=== PATIENT | male | born 1955 | race African-American/Black ===

== ENCOUNTER 2018-08-30 16:22 | Emergency (ER) | payer OTHER ==
[2018-08-30] MEDS ORDERED: HYDROCODONE/APAP 5/325 MG TAB ONE (17:04)
[2018-08-30] MEDS ORDERED: DIAZEPAM 2 MG TABLET ONE (17:05)
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
[2018-08-30 18:16] VITALS: TEMP 98.6
[2018-08-30 18:18] VITALS: BP 132/86; O2SAT 98
== END 2018-08-30 18:02 | disposition home or self-care (01) ==
LOC: ER 16:22
DX: S20.212A Contusion of left front wall of thorax, initial encounter (principal); V85.5XXA Driver of special construction vehicle injured in nontraffic accident, initial encounter; E11.9 Type 2 diabetes mellitus without complications
CPT/HCPCS: 71046; 99284

== ENCOUNTER 2023-03-30 09:13 | Inpatient (IN) | payer OTHER ==
--- OUTSIDE RECORDS SUMMARY | 2023-03-30 09:16 | XMS REPORT | Continuity of Care Document ---
:1955 Author Organization [facility] t Address [address] [place] [address] [place] [id number] Care Team Providers Name Role Phone NOAH NICOLÁS Javier Primary Care Physician Unavailable JAMI KAHN Attending Clinician Unavailable 2, Adc Lab Attending Clinician Unavailable Jami Kahn MD Attending Clinician Doctor Unassigned, [place] Attending Clinician Unavailable Lab, Ang - Db Attending Clinician Unavailable RADHA BOYCE Attending Clinician Unavailable Radha Hardy Attending Clinician Fartun Madden MD Attending Clinician FARTUN MADDEN Attending Clinician Unavailable Payers Payer Name Policy Type Policy Number Effective Date Expiration Date S [facility] [place] [id number] 2021 CLASSIC NO PREMIUM 00:00:00 HMO Problems Condition Condition Condition Status Onset Resolution Last Treating Co mments Source Name Details Category Date Date Treatment Clinician Date No known No known Disease Unive rs active active ity of problems problems [facility] Allergies, Adverse Reactions, Alerts Allergy Allergy Status Severity Reaction(s) Onset Inactive Treating Comm ents Source Name Type Date Date Clinician NO KNOWN Drug Active Univers ALLERGIE Class ity of S [facility] Social History Social Habit Start Date Stop Date Quantity Comments Source Exposure to 2022-11-14 2022-11-24 Not sure University SARS-CoV-2 00:00:00 08:27:00 [facility] (event) [place] Tobacco use and 2022-10-02 2022-10-02 Smokeless tobacco Un iversity of exposure 00:00:00 00:00:00 non-user [place] [facility] At [birth year] [facility] Smoking Status Start Date Stop Date Source Never smoked tobacco [facility] Medications Ordered Filled Start Stop Current Ordering Indication Dosage Frequency Signature Comments Components Source Medication Medication Date Date Medication? Clinician (SIG) Name Name tadalafiL 2022-0 Yes [id number] 20mg Take 1 U nivers (CIALIS) 20 1-03 tablet by it[place] of [place] needed for Medical Erectile [place] dysfunctio n (2 hrs prior to sexual activity, 2-3 times/ week). tadalafiL 2023-0 Yes [id number] 20mg Take 1 U nivers (CIALIS) 20 1-03 tablet by ity of mg tablet 00:[place] needed for Medical Erectile [facility] dysfunctio n (2 hrs prior to sexual activity, 2-3 times/ week). tadalafiL 3-0 Yes [id number] 20mg Take 1 U nivers (CIALIS) 20 1-03 tablet by ity of mg tablet 00:[place] needed for Medical E[place]ile Branch dysfunctio n (2 hrs prior to sexual activity, 2-3 times/ week). ATORVASTATI Yes Take by Uni vers N CALCIUM 1-15 mouth. ity of (LIPITOR 09:04: [place] ORAL) 10 [facility] GLIPIZIDE Yes Take by Unive rs ORAL 1-15 mouth. ity of 09:04: [address] Branch METFORMIN Yes Take by Unive rs HCL 1-15 mouth. ity of (METFORMIN 09:04: [place] ORAL) 10 [facility] ATORVASTATI Yes Take by Uni vers N CALCIUM 1-15 mouth. ity of (LIPITOR 09:04: [place] ORAL) 10 [facility] GLIPIZIDE Yes Take by Unive rs ORAL 1-15 mouth. ity of 09:04: [address] Branch METFORMIN Yes Take by Unive rs HCL 1-15 mouth. ity of (METFORMIN 09:04: [place] ORAL) 10 [facility] ATORVASTATI Yes Take by Uni vers N CALCIUM 1-15 mouth. ity of (LIPITOR 09:04: [place] ORAL) 10 Medical Branch GLIPIZIDE Yes Take by Unive rs ORAL 1-15 mouth. ity of 09:04: [place] 10 [facility] Branch METFORMIN Yes Take by Unive rs HCL 1-15 mouth. ity of (METFORMIN 09:04: [place] ORAL) 10 Medical Branch ATORVASTATI Yes Take by Uni vers N CALCIUM 1-15 mouth. ity of (LIPITOR 09:04: [place] ORAL) 10 [facility] Branch GLIPIZIDE Yes Take by Unive rs ORAL 1-15 mouth. ity of 09:04: [place] 10 Medical Branch METFORMIN Yes Take by Unive rs HCL 1-15 mouth. ity of (METFORMIN 09:04: [place] ORAL) 10 Medical Branch ATORVASTATI Yes Take by Uni vers N CALCIUM 1-15 mouth. ity of (LIPITOR 09:04: [place] ORAL) 10 Medical Branch GLIPIZIDE Yes Take by Unive rs ORAL 1-15 mouth. ity of 09:04: [place] [address] Medical Branch METFORMIN Yes Take by Unive rs HCL 1-15 mouth. ity of (METFORMIN 09:04: [place] ORAL) 10 Medical Branch ATORVASTATI Yes Take by Uni vers N CALCIUM 1-15 mouth. ity of (LIPITOR 09:04: [place] ORAL) 10 [facility] GLIPIZIDE Yes Take by Unive rs ORAL 1-15 mouth. ity of 09:04: [place] 10 [facility] Branch METFORMIN Yes Take by Unive rs HCL 1-15 mouth. ity of (METFORMIN 09:04: [place] ORAL) 10 Medical Branch ATORVASTATI Yes Take by Uni vers N CALCIUM 1-15 mouth. ity of (LIPITOR 09:04: [place] ORAL) 10 Medical Branch GLIPIZIDE Yes Take by Unive rs ORAL 1-15 mouth. ity of 09:04: [place] 10 [facility] Branch METFORMIN Yes Take by Unive rs HCL 1-15 mouth. ity of (METFORMIN 09:04: [place] ORAL) 10 Medical Branch ATORVASTATI Yes Take by Uni vers N CALCIUM 1-15 mouth. ity of (LIPITOR 09:04: [place] ORAL) 10 Medical Branch GLIPIZIDE Yes Take by Unive rs ORAL 1-15 mouth. ity of 09:04: [place] 10 Medical Branch METFORMIN Yes Take by Unive rs HCL 1-15 mouth. ity of (METFORMIN 09:04: [place] ORAL) 10 Medical Branch ATORVASTATI Yes Take by Uni vers N CALCIUM 1-15 mouth. ity of (LIPITOR 09:04: [place] ORAL) 10 [facility] GLIPIZIDE Yes Take by Unive rs ORAL 1-15 mouth. ity of 09:04: [place] 10 Medical Branch METFORMIN Yes Take by Unive rs HCL 1-15 mouth. ity of (METFORMIN 09:04: [place] ORAL) 10 Medical Branch ATORVASTATI Yes Take by Uni vers N CALCIUM 1-15 mouth. ity of (LIPITOR 09:04: [place] ORAL) 10 Medical Branch GLIPIZIDE Yes Take by Unive rs ORAL 1-15 mouth. ity of 09:04: [place] [address] Medical Branch METFORMIN Yes Take by Unive rs HCL 1-15 mouth. ity of (METFORMIN 09:04: [place] ORAL) 10 Medical Branch ATORVASTATI Yes Take by Uni vers N CALCIUM 1-15 mouth. ity of (LIPITOR 09:04: [place] ORAL) 10 [facility] Branch GLIPIZIDE Yes Take by Unive rs ORAL 1-15 mouth. ity of 09:04: [place] 10 [facility] Branch METFORMIN Yes Take by Unive rs HCL 1-15 mouth. ity of (METFORMIN 09:04: [place] ORAL) 10 Medical Branch ATORVASTATI Yes Take by Uni vers N CALCIUM 1-15 mouth. ity of (LIPITOR 09:04: [place] ORAL) 10 Medical Branch GLIPIZIDE Yes Take by Unive rs ORAL 1-15 mouth. ity of 09:04: [place] 10 Medical Branch METFORMIN Yes Take by Unive rs HCL 1-15 mouth. ity of (METFORMIN 09:04: [place] ORAL) 10 Medical Branch ATORVASTATI Yes Take by Uni vers N CALCIUM 1-15 mouth. ity of (LIPITOR 09:04: [place] ORAL) 10 Medical Branch GLIPIZIDE Yes Take by Unive rs ORAL 1-15 mouth. ity of 09:04: [place] 10 Medical Branch METFORMIN Yes Take by Unive rs HCL 1-15 mouth. ity of (METFORMIN 09:04: [place] ORAL) 10 Medical Branch Vital Signs Vital Name Observation Time Observation Value Comments Source Body height 2022-10-02 14:10:00 182.9 cm Universi ty [facility] Body weight 2022-10-02 14:10:00 95.255 kg Universi ty [facility] BMI 2022-10-02 14:10:00 28.48 kg/m2 Universi ty [facility] Systolic blood 2021-10-24 14:06:00 124 mm[Hg] [facility]iver [facility] Diastolic blood 2021-10-24 14:06:00 85 mm[Hg] Unive [facility] Heart rate 2021-10-24 14:06:00 86 /min Universi [facility] Respiratory rate 2021-10-24 14:06:00 18 /min Univ ersity [facility] Body height 2021-10-24 14:06:00 182.9 cm Universi ty [facility] Body weight 2021-10-24 14:06:00 95.255 kg Universi ty [facility] BMI 2021-10-24 14:06:00 28.48 kg/m2 Universi [facility] Oxygen saturation in 2021-10-24 14:06:00 99 /min [facility] Arterial blood by [facility] Pulse oximetry Branch Procedures Procedure Date / Time Performed Performing Clinician [facility] imani [facility] PATIENT FINANCIAL 2023-02-24 14:31:56 Doctor Unassigned, No [facility] POLICY Name Medical Branch PROSTATIC SPECIFIC 2022-11-24 16:00:00 Jami Kahn [facility] ASSIGNMENT OF BENEFITS 2022-11-24 14:38:28 Doctor Unassigned, No [facility] Name Medical Branch REFERRAL- 2022-09-30 06:01:00 Doctor Unassigned, No [facility] REQUEST/RESPONSE Name Medical Branch Encounters Start End Encounter Admission Attending Care Care Encounter Source Date/Time Date/Time Type Type Clinicians Facility Department ID 2023-03-10 2023-03-10 Outpatient R IRAJ [facility] [id number] Univers 10:00:00 10:00:00 JAMI ity [facility] 2023-03-05 2023-03-05 Outpatient R [facility] [id number] Univers 10:00:00 10:00:00 ity of [facility] 2023-02-24 2023-02-24 Mental Telepathist 2, Adc Lab [facility] 1.2.840.114 [id number] Univers 10:00:00 10:15:00 Visit Jami Kahn BRYN ATHYN [id number] ity of [id number] [phone] [facility] 353 [facility] 2023-02-24 2023-02-24 [facility] [id number] Univers 10:00:00 10:00:00 [facility] 2023-02-24 Orders Doctor [place] 1.2.840.114 [id number] Univers 00:00:00 00:00:00 Only Unassigned, GAGAN [id number] ity of [place] [facility] [id number] Brendan as [phone] [address] 2022-11-30 2022-11-30 Telephone Iraj [facility] [id number] Univers 00:00:00 00:00:00 [facility] [id number] i ty of [place] [phone] Nm dical NAL 204 [facility] 2022-11-24 2022-11-24 Mental Telepathist Lab, Km So [facility] 1.2.840.1 [id number] Univers 09:45:00 10:05:[address] [facility] [id number] ity of [place] [id number] Brendan as FARIBA?BLEA [phone] Nm dical [place] [address] [place] [facility] 2022-11-24 2022-11-24 Outpatient R IRAJ [facility] [id number] Univers 09:00:00 09:19:01 JAMI ity [facility] 2022-11-24 2022-11-24 Orders Doctor [place] 1.2.840.114 [id number] Univers 00:00:00 00:00:00 Only Unassigned, GAGAN [id number] ity of [place] [facility] 4.2.7.2.686 Brendan as [phone] [address] 2022-10-02 2022-10-02 Outpatient R OSMANY [facility] [id number] Univers 08:30:00 08:34:54 RADHA ity [facility] 2022-10-02 2022-10-02 [facility] 1.2.840.114 [id number] Univers 08:30:00 08:34:54 Visit [facility] HEALTH [id number] it y of [place] 4.2.7.2.686 Brendan as FARIBA?BLEA [phone] Nm daniemelody URIAS [address] [place] [address] OFFICE [facility] 2022-09-30 2022-09-30 Orders Doctor [place] 1.2.840.114 [id number] Univers 00:00:00 00:00:00 Only Unassigned, GAGAN [id number] ity of [place] [facility] 4.2.7.2.686 Brendan as [phone] [address] 2022-09-23 2022-09-23 Telephone [facility] [id number] Univers 00:00:00 00:00:00 Radha S HEALTH [id number] it y of [place] 4.2.7.2.686 Brendan as FARIBA?BLEA [phone] Nm dicmelody URIAS [address] [place] [address] 2021-11-18 2021-11-18 Telephone [facility] [id number] Univers 00:00:00 00:00:00 Radha S HEALTH [id number] it y of [place] 4.2.7.2.686 Brendan as FARIBA?BLEA [phone] Nm dical ADONAY [address] [place] [address] OFFICE [facility] 2021-10-24 2021-10-24 Office Radha Boyce [facility] 1.2.840.114 [id number] Univers 08:05:17 08:20:17 Visit Fartun Madden [facility] [id number] ity of [place] [id number] Brendan as FARIBA?BLEA [phone] Nm dical [address] MEDICAL OFFICE [facility] 2021-10-24 2021-10-24 [facility] [id number] Univers 08:15:00 08:15:00 FARTUN schaefer [facility] 2021-10-24 2021-10-24 Orders Doctor [place] 1.2.840.114 [id number] Univers 00:00:00 00:00:00 Only Unassigned, GAGAN 350.1.13.10 ity of [place] [facility] 4.2.7.2.686 Brendan as [phone] [address] 2020-12-06 2020-12-06 Office [facility] 1.2.840.114 [id number] Univers 08:52:31 09:55:33 Visit Radha [facility] 350.1.13.10 it y of Surgical 4.2.7.2.686 Brendan as Specialti [phone] Nm dical es [address] [facility] 2020-12-06 2020-12-06 [facility]patient [facility] [id number] Univers 09:00:00 09:00:00 RADHA [facility] 2020-11-26 2020-11-26 Orders Doctor [place] 1.2.840.114 [id number] Univers 00:00:00 00:00:00 Only Unassigned, GAGAN 350.1.13.10 ity of [place] [facility] 4.2.7.2.686 Brendan as [phone] [address] 2020-03-01 2020-03-01 Office Radha Boyce [facility] 1.2.840.114 [id number] Univers 08:09:57 08:24:57 Visit Fartun Madden [facility] 350.1.13.10 ity of Surgical 4.2.7.2.686 Brendan as Specialti [phone] Nm dical es 198 [facility] 2020-03-01 2020-03-01 Outpatient R OSCAR [facility] [id number] Univers 08:00:00 08:00:00 FARTUN itkay of [facility] 2020-02-27 2020-02-27 Telephone Oscar DCJORGE ALBERTO 1.2.840.114 [id number] Univers 00:00:00 00:00:[address]artun [address] [facility] [id number] it y of Surgical 4.2.7.2.686 Brendan as Specialti [phone] Nm dical es 198 [facility] 2020-02-14 2020-02-14 Orders Doctor [place] 1.2.840.114 [id number] Univers 00:00:00 00:00:00 Only Unassigned, GAGAN 350.1.13.10 ity of [place] [facility] 4.2.7.2.686 Brendan as [phone] [address] Results Test Description Test Time Test Comments Results Result Comments Source PROSTATIC SPECIFIC ANTIGEN 2022-11-24 20:47:53 Test Item Value Reference Range Interpretation Comme nts PSA (test code = 5.72 ng/mL See_Comment H [Automated message] The [id number]) system which ge nerated this result tra nsmitted reference range : <=4.00. The reference r adrienne was not used to int erpret this result as elizabeth l/abnormal. CARLI (test code = CARLI) Biotin has been reported to cause a negative bias, interpret results relative to patient's use of biotin. Lab Interpretation (test Abnormal code = 20421-3) [facility]
[2023-03-30] MEDS ORDERED: NA CHLORIDE 0.9% 1,000 ML ONE (09:42)
[2023-03-30 10:15] LABS: Absolute Lymphocytes (CBC) 0.9 K/uL (0.7-4.9); Hematocrit 46.5 % (39.6-49.0); Lymphocytes % 7.9 % (15.3-44.8); MCV 91.1 fL (80-100); MPV 9.1 fL (7.6-11.3)
[2023-03-30 10:33] LABS: Potassium 4.6 mEq/L (3.5-5.1)
[2023-03-30 10:34] LABS: Albumin 3.2 g/dL (3.4-5.0); Bilirubin Direct 0.2 mg/dL (0-0.2); Bilirubin Total 0.7 mg/dL (0.2-1.0); Magnesium 2.5 mg/dL (1.6-2.4); Phosphorus 4.6 mg/dL (2.5-4.9); Protein, Total 8.6 g/dL (6.4-8.2)
--- NOTE | 2023-03-30 11:14 | ER ---
Nurse's Notes [facility] Name: Adam Hoover Age: 68 yrs Sex: Male : 1955 Arrival Date: 03/30/2023 Time: 09:13 Bed 7 Private MD: Davis Carrasco Diagnosis: Diabetes mellitus due to underlying condition with foot ulcer;Type 2 diabetes mellitus with hyperglycemia Presentation: 03/30 09:30 Onset of symptoms was March 2023. aa5 09:30 Acuity: MARTHA 3 aa5 09:30 Chief complaint: Patient states: wound to right foot since Wednesday. Sent here by Dr. fransisco Carrasco to be admitted. 09:30 Coronavirus screen: At this time, the client does not indicate any symptoms associated aa5 with coronavirus-19. Ebola Screen: Patient denies travel to an Ebola-affected area in the 21 days before illness onset. Initial Sepsis Screen: Does the patient meet any 2 criteria? HR > 90 bpm. Does the patient have a suspected source of infection? Yes:. Risk Assessment: Do you want to hurt yourself or someone else? Patient reports no desire to harm self or others. 09:30 Method Of Arrival: Wheelchair aa5 Triage Assessment: 10:00 General: Appears in no apparent distress. 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 - Social history:: Smoking status: Patient denies any tobacco usage or history of. Screenin:03 [facility] ED Fall Risk Assessment (Adult) History of falling in the last 3 months, jl7 including since admission No falls in past 3 months (0 pts) Confusion or Disorientation No (0 pts) Intoxicated or Sedated No (0 pts) Impaired Gait No (0 pts) Mobility Assist Device Used No (0 pt) Altered Elimination No (0 pt) Score/Fall Risk Level 0 - 2 = Low Risk Oriented to surroundings, Maintained a safe environment. Abuse screen: Denies threats or abuse. Denies injuries from another. Nutritional screening: No deficits noted. Tuberculosis screening: No symptoms or risk factors identified. Assessment: 09:45 General: Appears in no apparent distress. comfortable, Behavior is calm, cooperative, jl7 appropriate for age. Pain: Denies pain. Neuro: Level of Consciousness is awake, alert, obeys commands, Oriented to person, place, time, situation. Cardiovascular: Patient's skin is warm and dry. Respiratory: Airway is patent Respiratory effort is even, unlabored, Respiratory pattern is regular, symmetrical. GI: No signs and/or symptoms were reported involving the gastrointestinal system. : No signs and/or symptoms were reported regarding the genitourinary system. Derm: Skin is dry, Skin is normal, Skin temperature is warm Wound noted ball of right foot. 11:00 Reassessment: Patient appears in no apparent distress at this time. No changes from jl7 previously documented assessment. Patient and/or family updated on plan of care and expected duration. Pain level reassessed. Patient is alert, oriented x 3, equal unlabored respirations, skin warm/dry/pink. 12:03 Reassessment: Attempted to draw blood cultures, unsuccessful, phlebotomy notified and jl7 will be down to draw cultures. Antibiotics will be started once cultures are drawn. 13:22 Reassessment: Patient appears in no apparent distress at this time. No changes from jl7 previously documented assessment. Patient and/or family updated on plan of care and expected duration. Pain level reassessed. Patient is alert, oriented x 3, equal unlabored respirations, skin warm/dry/pink. Vital Signs: 09:30 BP 132 / 88; Pulse 102; Resp 16 S; Temp 97.7(O); Pulse Ox 98% on R/A; Weight 87.09 kg aa5 (R); Height 6 ft. 0 in. (R); 10:03 BP 122 / 82; Pulse 98; Resp 15; Pulse Ox 99% ; Pain 0/10; jl7 10:59 BP 104 / 71; Pulse 97; Resp 15; Pulse Ox 100% ; jl7 13:22 BP 107 / 68; Pulse 100; Resp 19; Pulse Ox 99% ; jl7 09:30 Body Mass Index 26.04 (87.09 kg, 182.88 cm) aa5 10:03 Pain Scale: Adult jl7 ED Course: 09:14 Patient arrived in ED. rg4 09:14 Davis Carrasco MD is Private Physician. rg4 09:17 Brad Rodas DO is Attending Physician. ms3 09:17 Arm band placed on Patient placed in an exam room, on a stretcher. aa5 09:31 Verena Newman, TAWNYA is Primary Nurse. jl7 09:37 Triage completed. aa5 09:55 EKG done, by ED staff, reviewed by Brad Rodas DO. jl7 10:01 Inserted saline lock: 20 gauge in right antecubital area, using aseptic technique. zm Blood collected. 10:01 Acetone, Serum Sent. zm 10:01 Basic Metabolic Panel Sent. zm 10:01 CBC with Diff Sent. zm 10:01 Hepatic Function Sent. zm 10:01 Lipase Sent. zm 10:01 Magnesium Sent. zm 10:02 Phosphorus Sent. zm 10:03 Patient has correct armband on for positive identification. Placed in gown. Bed in low jl7 position. Call light in reach. Side rails up X2. Client placed on continuous cardiac and pulse oximetry monitoring. NIBP monitoring applied. Warm blanket given. 11:00 No provider procedures requiring assistance completed. Patient admitted, IV remains in jl7 place. intact, No redness/swelling at site. 11:13 Davis Carrasco MD is Hospitalizing Provider. ms3 Administered Medications: 10:45 Drug: NS 0.9% IV 1000 ml Route: IV; Rate: 1000 ml; Site: right antecubital; 12:00 Follow up: IV Status: Completed infusion; IV Intake: 1000ml jl7 11:16 Drug: Insulin Regular Human Sub-Q 10 units {Co-Signature: ss (Mally Guillen RN).} 7 Route: Sub-Q; Site: abdomen; 13:20 Follow up: Response: Blood sugar is lowered jl7 13:11 Drug: Piperacillin-Tazobactam IVPB 3.375 grams Route: IVPB; Infused Over: 60 mins; ss Site: right antecubital; 13:31 Follow up: IV Status: Infusion continued upon admission jl7 13:31 Drug: vancoMYCIN IVPB 1 grams {Note: Will be administered on the floor after Zosyn in jl7 complete.} Route: IVPB; Infused Over: 2 hrs; Site: right antecubital; 13:33 Follow up: IV Status: Infusion continued upon admission jl7 Medication: 11:31 VIS not applicable for this client. jl7 Point of Care Testing: Blood Glucose: 13:21 Blood Glucose: 364 mg/dL; jl7 Ranges: Intake: 12:00 IV: 1000ml; Total: 1000ml. jl7 Outcome: 11:13 Decision to Hospitalize by Provider. ms3 13:46 Admitted to Tele accompanied by tech, via wheelchair, room 222, with chart, Report jl7 called to TAWNYA Greene 13:46 Condition: stable 13:46 Discharge instructions given to patient, family, Instructed on the need for admit, Demonstrated understanding of instructions. 13:46 Patient left the ED. jl7 Signatures: Violetta Ramirez, TAWNYA RN aa5 Mally Guillen, TAWNYA RN ss Aracely Gregory Jahala, RN RN jl7 Brad Rodas DO DO ms3 Hillary Baldwin Shelby RN ss
--- NOTE | 2023-03-30 11:14 | EDPHYS ---
Physician Documentation [facility] Name: Adam Hoover Age: 68 yrs Sex: Male : 1955 Arrival Date: 03/30/2023 Time: 09:13 Bed 7 Private MD: Davis Carrasco ED Physician Brad Rodas HPI: 03/30 11:42 This 68 yrs old Black Male presents to ER via Wheelchair with complaints of Blister on ms3 Foot. 11:42 68-year-old male with past medical history of diabetes presents from Dr. Carrasco's office ms3 for diabetic foot ulcer. Dr. Carrasco called prior to patient's arrival and patient's blood glucose level in the office was 517, A1c was 12. Patient denies pain at this time. Patient denies alleviating or inciting factors. Historical: - Allergies: 09:30 No Known Allergies; aa5 - Home Meds: 13:24 losartan 50 mg oral tablet daily [Active]; jl7 13:29 Xigduo XR 5-1,000 mg oral tablet,immed \T\ ext release,biphasic 24hr daily [Active]; jl7 lovastatin 40 mg Oral tablet daily [Active]; - PMHx: 09:30 Diabetes - NIDDM; aa5 13:24 Hypertensive disorder; jl7 - PSHx: 09:30 L foot amputation; aa5 - Immunization history:: Adult Immunizations unknown. - Social history:: Smoking status: Patient denies any tobacco usage or history of. ROS: 11:42 Constitutional: Negative for fever, and chills. Eyes: Negative for injury, pain, ms3 redness, and discharge, Neck: Negative for injury, pain, and swelling, Cardiovascular: Negative for chest pain, and palpitations. Respiratory: Negative for shortness of breath, cough, wheezing, and pleuritic chest pain, Abdomen/GI: Negative for abdominal pain, nausea, vomiting, diarrhea, and constipation, MS/Extremity: Negative for injury and deformity. 11:42 Skin: Positive for ulceration, of the right foot. 11:42 All other systems are negative. Exam: 09:57 ECG was reviewed by the Attending Physician. ms3 11:42 Constitutional: This is a well developed, well nourished patient who is awake, alert, ms3 and in no acute distress. Head/Face: Normocephalic, atraumatic. Neck: Trachea midline, no cervical lymphadenopathy. Supple, full range of motion without nuchal rigidity, or vertebral point tenderness. No Meningismus. Chest/axilla: Normal chest wall appearance and motion. Nontender with no deformity. Cardiovascular: Regular rate and rhythm with a normal S1 and S2. No gallops, murmurs, or rubs. Normal PMI, no JVD. No pulse deficits. Respiratory: Lungs have equal breath sounds bilaterally, clear to auscultation and percussion. No rales, rhonchi or wheezes noted. No increased work of breathing, no retractions or nasal flaring. Abdomen/GI: Soft, non-tender, with normal bowel sounds. No distension or tympany. No guarding or rebound. No evidence of tenderness throughout. 11:42 Skin: lesion(s), located on the right foot, Ulceration, skin sloughing, discoloration. Vital Signs: 09:30 BP 132 / 88; Pulse 102; Resp 16 S; Temp 97.7(O); Pulse Ox 98% on R/A; Weight 87.09 kg aa5 (R); Height 6 ft. 0 in. (R); 10:03 BP 122 / 82; Pulse 98; Resp 15; Pulse Ox 99% ; Pain 0/10; jl7 10:59 BP 104 / 71; Pulse 97; Resp 15; Pulse Ox 100% ; jl7 13:22 BP 107 / 68; Pulse 100; Resp 19; Pulse Ox 99% ; jl7 09:30 Body Mass Index 26.04 (87.09 kg, 182.88 cm) aa5 10:03 Pain Scale: Adult jl7 MDM: 09:56 Patient medically screened. ms3 11:42 Differential diagnosis: Cellulitis vs abscess vs diabetic foot ulcer. Data reviewed: ms3 vital signs, nurses notes, lab test result(s), and as a result, I will admit patient. Consideration of Admission/Observation Patient was admitted/placed on observation. Management of patient was discussed with the following: Hospitalist: Dr Carrasco. I considered the following discharge prescriptions or medication management in the emergency department Medications were administered in the Emergency Department. See MAR. Counseling: I had a detailed discussion with the patient and/or guardian regarding: the historical points, exam findings, and any diagnostic results supporting the discharge/admit diagnosis, lab results, the need for further work-up and treatment in the hospital. ED course: Discussed labs and results with Dr. Carrasco. He agrees with Vancomycin and Zosyn at this time. Right foot x-ray ordered. Discussed plan for admission with patient and his . They understand and agree with plan.. 03/30 09:17 Order name: Acetone, Serum; Complete Time: 10:32 ms3 03/30 09:17 Order name: Basic Metabolic Panel; Complete Time: 11:09 ms3 03/30 09:17 Order name: CBC with Diff; Complete Time: 10:32 ms3 03/30 09:17 Order name: Hepatic Function; Complete Time: 11:09 ms3 03/30 09:17 Order name: Lipase; Complete Time: 11:09 ms3 03/30 09:17 Order name: Magnesium; Complete Time: 11:09 ms3 03/30 09:17 Order name: Phosphorus; Complete Time: 11:09 ms3 03/30 10:05 Order name: Wound Culture jl7 03/30 11:12 Order name: Blood Culture Adult (2) ms3 03/30 13:32 Order name: Glucose, Ancillary Testing; Complete Time: 13:41 EDMS 03/30 11:12 Order name: Foot Left 3 View XRAY ms3 03/30 12:47 Order name: RAD; Complete Time: 13:41 EDMS 03/30 09:17 Order name: EKG; Complete Time: 09:18 ms3 03/30 09:17 Order name: Cardiac monitoring; Complete Time: 10:04 ms3 03/30 09:17 Order name: EKG - Nurse/Tech; Complete Time: 10:04 ms3 03/30 09:17 Order name: IV Saline Lock; Complete Time: 10:01 ms3 03/30 09:17 Order name: NPO; Complete Time: 10:04 ms3 03/30 09:17 Order name: O2 Per Protocol; Complete Time: 10:04 ms3 03/30 09:17 Order name: O2 Sat Monitoring; Complete Time: 10:05 ms3 EC:57 Rate is 98 beats/min. Rhythm is regular. QRS [place] is Normal. SD interval is normal. QRS ms3 interval is normal. Clinical impression: NSR w/ Non-specific ST/T Changes. Interpreted by me. Reviewed by me. Administered Medications: 10:45 Drug: NS 0.9% IV 1000 ml Route: IV; Rate: 1000 ml; Site: right antecubital; ss 12:00 Follow up: IV Status: Completed infusion; IV Intake: 1000ml jl7 11:16 Drug: Insulin Regular Human Sub-Q 10 units {Co-Signature: ss (Mally Guillen RN).} jl7 Route: Sub-Q; Site: abdomen; 13:20 Follow up: Response: Blood sugar is lowered jl 13:11 Drug: Piperacillin-Tazobactam IVPB 3.375 grams Route: IVPB; Infused Over: 60 mins; ss Site: right antecubital; 13:31 Follow up: IV Status: Infusion continued upon admission jl7 13:31 Drug: vancoMYCIN IVPB 1 grams {Note: Will be administered on the floor after Zosyn in jl7 complete.} Route: IVPB; Infused Over: 2 hrs; Site: right antecubital; 13:33 Follow up: IV Status: Infusion continued upon admission jl7 Point of Care Testing: Blood Glucose: 13:21 Blood Glucose: 364 mg/dL; jl7 Ranges: Critical Glucose Levels:Adult <50 mg/dl or >400 mg/dl <40 mg/dl or >180 mg/dl Disposition Summary: 03/30/23 11:13 Hospitalization Ordered Hospitalization Status: Inpatient Admission ms3 Provider: Davis Carrasco ms3 Location: Telemetry/MedSurg (Inpatient) ms3 Condition: Stable ms3 Problem: new ms3 Symptoms: are unchanged ms3 Bed/Room Type: Standard ms3 Room Assignment: 222(03/30/23 12:20) bd Diagnosis - Diabetes mellitus due to underlying condition with foot ulcer ms3 - Type 2 diabetes mellitus with hyperglycemia ms3 Forms: - Medication Reconciliation Form ms3 - SBAR form ms3 Signatures: Dispatcher [employer] Annemarie Aponte Audri, RN RN aa5 Mally Guillen, RN RN ss Verena Newman RN RN jl7 Brad Rodas DO DO ms3 Mally Guillen RN ss Corrections: (The following items were deleted from the chart) 12:20 11:13 ms3 bd
[2023-03-30] MEDS ORDERED: INSULIN -REGULAR HUMAN 50 UNIT/0.5 ML ML ONE (11:19)
[2023-03-30] MEDS ORDERED: VANCOMYCIN 1 GM/VIAL ONE (11:25)
[2023-03-30] MEDS ORDERED: NA CHLORIDE 0.9% 250 ML ONE (11:25)
[2023-03-30] MEDS ORDERED: NA CHLORIDE 0.9% 100 ML ONE (11:25)
[2023-03-30] MEDS ORDERED: PIPERACIL/TAZO 3.375 GM VIAL IV ONE ×2 (11:25→23:33)
[2023-03-30] MEDS ORDERED: ONDANSETRON 4 MG/2 ML VIAL IV PRN (11:27)
[2023-03-30] MEDS ORDERED: ACETAMINOPHEN 500 MG TAB PO PRN (11:27)
[2023-03-30] MEDS ORDERED: GLUCAGON 1 MG/VIAL IM PRN (11:33)
[2023-03-30] MEDS ORDERED: D50W 25 GM/50 ML SYRINGE IV PRN (11:33)
[2023-03-30] MEDS ORDERED: D10W 125 ML IV PRN (11:42)
[2023-03-30] MEDS ORDERED: VANCOMYCIN 500 MG in NA CHLORIDE 0.9% 100 ML IVPB ONE (12:00)
[2023-03-30] MEDS ORDERED: VANCOMYCIN 1 GM in NA CHLORIDE 0.9% 250 ML IVPB SCH (12:00)
--- NOTE | 2023-03-30 12:46 | RAD REPORT ---
EXAM DESCRIPTION: RAD - Foot Left 3 View - 03/30/2023 11:35 am CLINICAL HISTORY: PAIN COMPARISON: No comparisons FINDINGS: No fracture seen. Mild atherosclerosis. Soft tissue swelling is seen affecting the great t oe. Small erosive changes are also noted at the first MTP joint which can indicate gout. Tiny calcane al spurs. No radiographic evidence is seen to indicate osteomyelitis. MRI the foot would be more sens itive for further evaluation.
[2023-03-30 14:40] VITALS: BMI 26.0
--- NOTE | 2023-03-30 15:35 | EKG ---
Test Date: 2023-03-30 Test Time: 09:55:16 Call Center Trainer: ENZO MEASUREMENT RESULTS: Intervals: Rate: 98 LA: 154 QRSD: 80 QT: 374 QTc: 477 [place]: P: 63 LA: 154 QRS: -16 T: 120 INTERPRETIVE STATEMENTS: Normal sinus rhythm Nonspecific ST and T wave abnormality Prolonged QT Abnormal ECG Compared to ECG 05/11/2015 12:17:52 ST (T wave) deviation now present Prolonged QT interval now present Electronically Signed On 03-30-23 15:34:19 CDT by Gino Gutierrez
[2023-03-30] MEDS: INSULIN -REGULAR HUMAN 50 UNIT/0.5 ML ML SQ SCH ×2 (16:14→20:52)
[2023-03-30] MEDS ORDERED: HYDRALAZINE HCL 20 MG/ML VIAL IV PRN (16:38)
--- NOTE | 2023-03-30 16:46 | P.HP ---
Certification for Inpatient Patient admitted to: Inpatient With expected LOS: >2 Midnights Practitioner: I am a practitioner with admitting privileges, knowledge of patient current condition, hospital course, and medical plan of care. Services: Services provided to patient in accordance with Admission requirements found in Title 42 Section 412.3 of the Code of Federal Regulations Patient History Date of Service: 03/30/23 Primary Care Provider: Desean Reason for admission: diabetic foot ulcer History of Present Illness: Patient is an office patient of ours. He has a history of diabetes and has had a foot amputation due to this. The patient has been feeling poorly and has had elevated sugars for the past few weeks. He came to the office this morning. Was found to have a sugar of 517, a1c was 12. He had dry stage 2 ulcer on the plantar foot proximal to the great toe. Was sent to the ER. He did not have a significant white count. No evidence of osteomyelitis on xray. Will admit him to control the sugar Allergies No Known Drug Allergies Allergy (Unverified 05/11/15 15:39) Unknown Home Medications: Dapagliflozin/Metformin HCl [Xigduo Xr 5 mg-1,000 mg Tablet] 1 tab PO DAILY 03/30/23 Losartan Potassium 50 mg PO DAILY 03/30/23 Lovastatin 40 mg PO DAILY 03/30/23 - Past Medical/Surgical History Diabetic: Yes -: diabetes -: hypertension -: left bka - Social History Smoking Status: Never smoker Alcohol use: No CD- Drugs: No Caffeine use: No Place of Residence: Home Review of Systems 10-point ROS is otherwise unremarkable Integumentary: Other (diabetic foot ulcer ) Physical Examination - Vital Signs Temperature: 98.2 F Blood Pressure: 121/66 Pulse: 101 Respirations: 16 Pulse Ox (%): 96 - Physical Exam General: Alert, In no apparent distress HEENT: Atraumatic, PERRLA, Mucous membr. moist/pink, EOMI, Sclerae nonicteric Neck: Supple, 2+ carotid pulse no bruit, No LAD, Without JVD or thyroid abnormality Respiratory: Clear to auscultation bilaterally, Normal air movement Cardiovascular: Regular rate/rhythm, Normal S1 S2 Gastrointestinal: Normal bowel sounds, No tenderness Musculoskeletal: No tenderness Integumentary: No rashes, Diabetic ulcer Neurological: Normal gait, Normal speech, Normal strength at 5/5 x4 extr, Normal tone, Normal affect Lymphatics: No axilla or inguinal lymphadenopathy - Studies Laboratory Data (last 24 hrs) 03/30/23 09:58: WBC 10.80, Hgb 15.4, Hct 46.5, Plt Count 200 03/30/23 09:58: Sodium 126 L, Potassium 4.6, BUN 37 H, Creatinine 1.94 H, Glucose 551 H*, Phosphorus 4.6, Magnesium 2.5 H, Total Bilirubin 0.7, AST 9 L, ALT 19, Alkaline Phosphatase 134 H, Lipase 12 L Assessment and Plan - Problems (Diagnosis) (1) Type 2 diabetes mellitus with foot ulcer Current Visit: Yes Status: Acute Plan: will hold his metformin due to the elevated creatine. Start him on fluids and sliding scale insulin. Will start him on an ada diet Patient gave permission to discuss his care with his sister in Law Shawna Fontana (our admitting office escort) Qualifiers: Diabetes mellitus rn long term care insulin use: without rn long term care use Qualified Code(s): E11.621 - Type 2 diabetes mellitus with foot ulcer; L97.509 - Non- pressure chronic ulcer of other part of unspecified foot with unspecified severity (2) Acute renal failure Current Visit: Yes Status: Acute Plan: will keep the patient on N saline. Monitor the creatine as needed Qualifiers: Acute renal failure type: unspecified Qualified Code(s): N17.9 - Acute kidney failure, unspecified (3) Essential (primary) hypertension Current Visit: Yes Status: Chronic Plan: for now will hold the lisinopril till creatine improves. Will treat him prn with hydralazine Discharge Plan: Home Plan to discharge in: 24 Hours - Advance Directives Does patient have a Living Will: No Does patient have a Durable POA for Healthcare: No - Code Status/Comfort Care Code Status Assessed: Yes Physician Review: Patient Assessed, Agree with Above Assessment and Plan Critical Care: No Time Spent Managing Pts Care (In Minutes): 75
[2023-03-30] MEDS ORDERED: PNEUMOCOCCAL VACCINE 0.5 ML IMVAC ONE (17:00)
[2023-03-30] MEDS: NA CHLORIDE 0.9% 1,000 ML IV SCH (17:18)
[2023-03-30] MEDS: PIPER TAZO 3.375 GM in NA CHLORIDE 0.9% 100 ML IV SCH (17:20)
[2023-03-30] MEDS: ENOXAPARIN 30 MG/0.3 ML SQ SCH (17:22)
[2023-03-30] MEDS: AMOX/K CLAV 500 MG TAB PO SCH (20:52)
[2023-03-31] MEDS: NA CHLORIDE 0.9% 1,000 ML IV SCH ×3 (04:27→23:11)
[2023-03-31 07:27] LABS: Absolute Lymphocytes (CBC) 1.4 K/uL (0.7-4.9); Hematocrit 41.8 % (39.6-49.0); Lymphocytes % 18.6 % (15.3-44.8); MCV 89.9 fL (80-100); MPV 8.8 fL (7.6-11.3); RBC Red Blood Cell Count 4.65 M/uL (4.33-5.43)
[2023-03-31 07:45] LABS: Albumin 2.6 g/dL (3.4-5.0); Bilirubin Total 0.6 mg/dL (0.2-1.0); Protein, Total 7.3 g/dL (6.4-8.2)
[2023-03-31] MEDS: AMOX/K CLAV 500 MG TAB PO SCH (08:10)
[2023-03-31] MEDS: ATORVASTATIN 20 MG TAB PO SCH (08:10)
[2023-03-31] MEDS: PIPER TAZO 3.375 GM in NA CHLORIDE 0.9% 100 ML IV SCH ×3 (08:10)
[2023-03-31] MEDS: INSULIN -REGULAR HUMAN 50 UNIT/0.5 ML ML SQ SCH ×4 (08:12→21:34)
[2023-03-31] MEDS ORDERED: HOME MED 1 EA UNK (Lovastatin [Lovastatin] 40 MG Tablet) PO SCH (09:00)
[2023-03-31] MEDS: COLLAGENASE 30 GM OINTMENT TOP SCH (09:00)
[2023-03-31] MEDS: VANCOMYCIN 1.25 GM in NA CHLORIDE 0.9% 250 ML IVPB SCH (11:35)
[2023-03-31] MEDS ORDERED: VANCOMYCIN 1.5 GM in NA CHLORIDE 0.9% 500 ML IVPB SCH (12:00)
--- NOTE | 2023-03-31 12:41 | P.PN ---
Subjective Date of Service: 03/31/23 Primary Care Provider: Desean Chief Complaint: diabetic foot ulcer Subjective: Improving Review of Systems 10-point ROS is otherwise unremarkable Physical Examination - Vital Signs Temperature: 98.0 F Blood Pressure: 133/75 Pulse: 93 Respirations: 18 Pulse Ox (%): 97 - Physical Exam General: Alert, In no apparent distress HEENT: Atraumatic, PERRLA, EOMI Neck: Supple, JVD not distended Respiratory: Clear to auscultation bilaterally, Normal air movement Cardiovascular: Regular rate/rhythm, Normal S1 S2 Gastrointestinal: Normal bowel sounds, No tenderness Musculoskeletal: No tenderness Integumentary: No rashes Neurological: Normal speech, Normal tone, Normal affect Lymphatics: No axilla or inguinal lymphadenopathy - Studies Microbiology Data (last 24 hrs): 03/30/23 10:41 Wound - Right Foot Gram Stain - Final Assessment And Plan - Current Problems (Diagnosis) (1) Type 2 diabetes mellitus with foot ulcer Current Visit: Yes Status: Acute Plan: will hold his metformin due to the elevated creatine. Start him on fluids and sliding scale insulin. Will start him on an ada diet Patient gave permission to discuss his care with his sister in Law Shawna Fontana (our rn office) Qualifiers: Diabetes mellitus [facility] insulin use: without extermination supervisor use Qualified Code(s): E11.621 - Type 2 diabetes mellitus with foot ulcer; L97.509 - Non- pressure chronic ulcer of other part of unspecified foot with unspecified severity (2) Acute renal failure Current Visit: Yes Status: Acute Plan: will keep the patient on N saline. Monitor the creatine as needed 5/10 creatine is improving. Will hold the losartan and continue iv fluids. Qualifiers: Acute renal failure type: unspecified Qualified Code(s): N17.9 - Acute kidney failure, unspecified (3) Essential (primary) hypertension Current Visit: Yes Status: Chronic Plan: for now will hold the lisinopril till creatine improves. Will treat him prn with hydralazine Discharge Plan: Home Plan to discharge in: 24 Hours - Code Status/Comfort Care Code Status Assessed: No Physician Review: Patient Assessed, Agree with Above Assessment and Plan Critical Care: No Time Spent Managing PTS Care (In Minutes): 20
[2023-03-31] MEDS: ENOXAPARIN 30 MG/0.3 ML SQ SCH (16:24)
[2023-03-31 22:03] VITALS: O2SAT 96
[2023-04-01 06:45] LABS: Absolute Lymphocytes (CBC) 1.5 K/uL (0.7-4.9); Hematocrit 40.1 % (39.6-49.0); Lymphocytes % 22.4 % (15.3-44.8); MCV 90.4 fL (80-100); MPV 8.6 fL (7.6-11.3); RBC Red Blood Cell Count 4.44 M/uL (4.33-5.43)
[2023-04-01 07:03] LABS: Albumin 2.4 g/dL (3.4-5.0); Bilirubin Total 0.5 mg/dL (0.2-1.0); Potassium 3.6 mEq/L (3.5-5.1); Protein, Total 6.9 g/dL (6.4-8.2)
[2023-04-01] MEDS: INSULIN -REGULAR HUMAN 50 UNIT/0.5 ML ML SQ SCH ×2 (07:30→13:08)
[2023-04-01] MEDS ORDERED: INSULIN GLARGINE 100 UNIT/ML SQ SCH (09:00)
[2023-04-01] MEDS: COLLAGENASE 30 GM OINTMENT TOP SCH (09:00)
[2023-04-01] MEDS: ATORVASTATIN 20 MG TAB PO SCH (09:47)
[2023-04-01] MEDS: NA CHLORIDE 0.9% 1,000 ML IV SCH (09:47)
[2023-04-01 12:31] VITALS: BP 133/90; TEMP 98.8
[2023-04-01] MEDS: VANCOMYCIN 1.25 GM in NA CHLORIDE 0.9% 250 ML IVPB SCH (13:07)
--- NOTE | 2023-04-01 13:29 | P.DS ---
Admission Date: 03/30/23 Discharge Date: 04/01/23 Primary Care Provider: Desean Disposition: ROUTINE DISCHARGE Discharge Condition: GOOD Reason for Admission: diabetic foot ulcer - Problems (1) Type 2 diabetes mellitus with foot ulcer Current Visit: Yes Status: Acute Qualifiers: Diabetes mellitus [employer] supervisor insulin use: without [facility] use Qualified Code(s): E11.621 - Type 2 diabetes mellitus with foot ulcer; L97.509 - Non- pressure chronic ulcer of other part of unspecified foot with unspecified severity (2) Acute renal failure Current Visit: Yes Status: Acute Qualifiers: Acute renal failure type: unspecified Qualified Code(s): N17.9 - Acute kidney failure, unspecified (3) Essential (primary) hypertension Current Visit: Yes Status: Chronic Brief History of Present Illness: Patient is an office patient of ours. He has a history of diabetes and has had a foot amputation due to this. The patient has been feeling poorly and has had elevated sugars for the past few weeks. He came to the office this morning. Was found to have a sugar of 517, a1c was 12. He had dry stage 2 ulcer on the plantar foot proximal to the great toe. Was sent to the ER. He did not have a significant white count. No evidence of osteomyelitis on xray. Will admit him to control the sugar Hospital Course: Patient was admitted and started on fluids and insulin. He is doing better creatine has improved. He was 1.4 last time we checked. will discharge him on insulin and bactrim. Have the patient follow up in the wound care center Vital Signs/Physical Exam: Temp Pulse Resp BP Pulse Ox 98.8 F 90 16 133/90 97 04/01/23 12:00 04/01/23 12:00 04/01/23 12:00 04/01/23 12:00 04/01/23 12:00 General: Alert, In no apparent distress HEENT: Atraumatic, PERRLA, EOMI Neck: Supple, JVD not distended Respiratory: Clear to auscultation bilaterally, Normal air movement Cardiovascular: Regular rate/rhythm, Normal S1 S2 Gastrointestinal: Normal bowel sounds, No tenderness Musculoskeletal: No tenderness Integumentary: No rashes Neurological: Normal speech, Normal tone, Normal affect Lymphatics: No axilla or inguinal lymphadenopathy Laboratory Data at Discharge: WBC 6.70 thou/uL (4.3-10.9) 04/01/23 06:07 Hgb 13.4 g/dL (13.6-17.9) L 04/01/23 06:07 Hct 40.1 % (39.6-49.0) 04/01/23 06:07 Plt Count 189 thou/uL (152-406) 04/01/23 06:07 Sodium 136 mEq/L (136-145) 04/01/23 06:07 Potassium 3.6 mEq/L (3.5-5.1) 04/01/23 06:07 BUN 20 mg/dL (7-18) H 04/01/23 06:07 Creatinine 1.02 mg/dL (0.70-1.30) 04/01/23 06:07 Glucose 121 mg/dL (74-106) H 04/01/23 06:07 Phosphorus 4.6 mg/dL (2.5-4.9) 03/30/23 09:58 Magnesium 2.5 mg/dL (1.6-2.4) H 03/30/23 09:58 Total Bilirubin 0.5 mg/dL (0.2-1.0) 04/01/23 06:07 AST 11 U/L (15-37) L 04/01/23 06:07 ALT 16 U/L (16-61) 04/01/23 06:07 Alkaline Phosphatase 92 U/L (45-117) 04/01/23 06:07 Lipase 12 U/L (13-75) L 03/30/23 09:58 Home Medications: Dapagliflozin/Metformin HCl [Xigduo Xr 5 mg-1,000 mg Tablet] 1 tab PO DAILY 03/30/23 Losartan Potassium 50 mg PO DAILY 03/30/23 Lovastatin 40 mg PO DAILY 03/30/23 Insulin Degludec [Tresiba Flextouch U-100] 10 unit SQ DAILY 30 Days #10 ml 04/01/23 Smz./Tmp. [Bactrim Ds 800 MG/160 MG] 1 each PO DAILY 5 Days #10 tab 04/01/23 New Medications: Smz./Tmp. [Bactrim Ds 800 MG/160 MG] 1 each PO DAILY 5 Days #10 tab Insulin Degludec [Tresiba Flextouch U-100] 10 unit SQ DAILY 30 Days #10 ml Physician Discharge Instructions: set up follow up in the wound care clinic on Mon with Dr. Carrasco Diet: ADA Followup: Davis Carrasco MD [Primary Care Provider] - 1 Week Time spent managing pt's care (in minutes): 30
[2023-04-01] MEDS ORDERED: ENOXAPARIN 40 MG/0.4 ML SQ SCH (17:00)
[2023-04-01] MEDS ORDERED: AMINO ACIDS/PROTEIN HYDROLYS 30 ML LIQUID.PKT PO SCH (21:00)
[2023-04-02] MEDS ORDERED: VANCOMYCIN 1.25 GM in NA CHLORIDE 0.9% 250 ML IVPB SCH (06:00)
== END 2023-04-01 15:49 | disposition home or self-care (01) | DRG 639 ==
LOC: ER 09:13 → ERHOLD 11:26 → 2ND 13:29
PROVIDERS: ADMIT Internal Medicine; ATTEND Internal Medicine
DX: E11.621 Type 2 diabetes mellitus with foot ulcer (principal); N17.9 Acute kidney failure, unspecified; E11.65 Type 2 diabetes mellitus with hyperglycemia; L97.509 Non-pressure chronic ulcer of other part of unspecified foot with unspecified severity; I10 Essential (primary) hypertension; Z79.4 Long term (current) use of insulin; Z89.432 Acquired absence of left foot; Z79.899 Other long term (current) drug therapy
CPT/HCPCS: 36415; 80048; 80053; 80076; 80202; 82010; 82947; 83690; 83735; 84100; 85025; 87040; 87070; 87077; 87186; 87205; 93005; 96361; 96365; 96372; 96375; 99285; J1650; J1815; J2543; J3590; J7030; J7040; J7050

== ENCOUNTER 2023-06-21 09:12 | Inpatient (IN) | payer OTHER ==
--- OUTSIDE RECORDS SUMMARY | 2023-06-21 09:17 | XMS REPORT | Continuity of Care Document ---
:1955 Author Organization [facility] t Address [address] [place] [address] [place] [id number] Care Team Providers Name Role Phone Vicky Anton Primary Care Physician Jami Galo MD Attending Clinician JAMI GALO Attending Clinician Unavailable 2, [facility] Attending Clinician Unavailable Doctor Unassigned, [place] Attending Clinician Unavailable Lab, Ang - Db Attending Clinician Unavailable RADHA CERON Attending Clinician Unavailable Radha Hardy Attending Clinician Fartun Moore MD Attending Clinician FARTUN MOORE Attending Clinician Unavailable Payers Payer Name Policy Type Policy Number Effective Date Expiration Date S ource Problems Condition Condition Condition Status Onset Resolution Last Treating Co mments Source Name Details Category Date Date Treatment Clinician Date No known No known Disease Unive rs active active ity of problems problems [facility] Allergies, Adverse Reactions, Alerts Allergy Allergy Status Severity Reaction(s) Onset Inactive Treating Comm ents Source Name Type Date Date Clinician NO KNOWN Drug Active Univers ALLERGIE Class ity of S [facility] Social History Social Habit Start Date Stop Date Quantity Comments Source Gender identity Universit y [facility] Sexual orientation Univer sity [facility] Exposure to 2022-11-14 2022-11-24 Not sure University SARS-CoV-2 (event) 00:00:00 08:27:00 [facility] History of Social 2022-10-02 2022-10-02 Univers ity of function 00:00:00 00:00:00 [facility] Tobacco use and 2022-10-02 2022-10-02 Smokeless [facility] y of exposure 00:00:00 00:00:00 tobacco non-user [facility] Sex Ass[birth year] At [birth year] [facility] y of 00:00:00 00:00:00 [facility] Smoking Status Start Date Stop Date Source Never smoked tobacco [facility] Medications Ordered Filled Start Stop Current Ordering Indication Dosage Frequency Signature Comments Components Source Medication Medication Date Date Medication? Clinician (SIG) Name Name tadalafiL Yes [id number] 20mg Take 1 U nivers (CIALIS) 20 1-03 tablet by [place] needed for Medical Erectile Branch dysfunctio n (2 hrs prior to sexual activity, 2-3 times/ week). tadalafiL Yes [id number] 20mg Take 1 U nivers (CIALIS) 20 1-03 tablet by ity of mg tablet [place] needed for Medical E[place]ile Branch dysfunctio n (2 hrs prior to sexual activity, 2-3 times/ week). tadalafiL Yes [id number] 20mg Take 1 U nivers (CIALIS) 20 1-03 tablet by ity of mg tablet [place] needed for Medical Erectile Branch dysfunctio n (2 hrs prior to sexual activity, 2-3 times/ week). tadalafiL Yes [id number] 20mg Take 1 U nivers (CIALIS) 20 1-03 tablet by ity of mg tablet 00:[place] needed for Medical Erectile Branch dysfunctio n (2 hrs prior to sexual activity, 2-3 times/ week). GLIPIZIDE Yes Take by Unive rs ORAL 1-15 mouth. ity of 09:04: [place] 10 [facility] METFORMIN Yes Take by Unive rs HCL 1-15 mouth. ity of (METFORMIN 09:04: [place] ORAL) [address] [place] [address] Branch ATORVASTATI Yes Take by Uni vers N CALCIUM 1-15 mouth. ity of (LIPITOR 09:04: [place] ORAL) [address] [place] [address] GLIPIZIDE Yes Take by Unive rs ORAL 1-15 mouth. ity of 09:04: [place] 10 Medical Branch METFORMIN Yes Take by Unive rs HCL 1-15 mouth. ity of (METFORMIN 09:04: [place] ORAL) 10 Medical Branch ATORVASTATI Yes Take by Uni vers N CALCIUM 1-15 mouth. ity of (LIPITOR 09:04: [place] ORAL) 10 Medical Branch GLIPIZIDE Yes Take by Unive rs ORAL 1-15 mouth. ity of 09:04: [place] 10 Medical Branch METFORMIN Yes Take by Unive rs HCL 1-15 mouth. ity of (METFORMIN 09:04: [place] ORAL) 10 Medical Branch ATORVASTATI Yes Take by Uni vers N CALCIUM 1-15 mouth. ity of (LIPITOR 09:04: [place] ORAL) 10 Medical Branch GLIPIZIDE Yes Take by Unive rs ORAL 1-15 mouth. ity of 09:04: [place] [address] Medical Branch METFORMIN Yes Take by Unive rs HCL 1-15 mouth. ity of (METFORMIN 09:04: [place] ORAL) 10 Medical Branch ATORVASTATI Yes Take by Uni vers N CALCIUM 1-15 mouth. ity of (LIPITOR 09:04: [place] ORAL) 10 Medical Branch GLIPIZIDE Yes Take by Unive rs ORAL 1-15 mouth. ity of 09:04: [place] [address] Medical Branch METFORMIN Yes Take by Unive rs HCL 1-15 mouth. ity of (METFORMIN 09:04: [place] ORAL) 10 Medical Branch ATORVASTATI Yes Take by Uni vers N CALCIUM 1-15 mouth. ity of (LIPITOR 09:04: [place] ORAL) 10 Medical Branch GLIPIZIDE Yes Take by Unive rs ORAL 1-15 mouth. ity of 09:04: [place] [address] Medical Branch METFORMIN Yes Take by Unive rs HCL 1-15 mouth. ity of (METFORMIN 09:04: [place] ORAL) 10 Medical Branch ATORVASTATI Yes Take by Uni vers N CALCIUM 1-15 mouth. ity of (LIPITOR 09:04: [place] ORAL) 10 Medical Branch GLIPIZIDE Yes Take by Unive rs ORAL 1-15 mouth. ity of 09:04: [place] 10 Medical Branch METFORMIN Yes Take by Unive rs HCL 1-15 mouth. ity of (METFORMIN 09:04: [place] ORAL) 10 Medical Branch ATORVASTATI Yes Take by Uni vers N CALCIUM 1-15 mouth. ity of (LIPITOR 09:04: [place] ORAL) 10 Medical Branch GLIPIZIDE Yes Take by Unive rs ORAL 1-15 mouth. ity of 09:04: [place] 10 Medical Branch METFORMIN Yes Take by Unive rs HCL 1-15 mouth. ity of (METFORMIN 09:04: [place] ORAL) 10 Medical Branch ATORVASTATI Yes Take by Uni vers N CALCIUM 1-15 mouth. ity of (LIPITOR 09:04: [place] ORAL) 10 Medical Branch GLIPIZIDE Yes Take by Unive rs ORAL 1-15 mouth. ity of 09:04: [place] [address] Medical Branch METFORMIN Yes Take by Unive rs HCL 1-15 mouth. ity of (METFORMIN 09:04: [place] ORAL) 10 Medical Branch ATORVASTATI Yes Take by Uni vers N CALCIUM 1-15 mouth. ity of (LIPITOR 09:04: [place] ORAL) 10 Medical Branch GLIPIZIDE Yes Take by Unive rs ORAL 1-15 mouth. ity of 09:04: [place] [address] Medical Branch METFORMIN Yes Take by Unive rs HCL 1-15 mouth. ity of (METFORMIN 09:04: [place] ORAL) 10 Medical Branch ATORVASTATI Yes Take by Uni vers N CALCIUM 1-15 mouth. ity of (LIPITOR 09:04: [place] ORAL) 10 Medical Branch GLIPIZIDE Yes Take by Unive rs ORAL 1-15 mouth. ity of 09:04: [place] [address] Medical Branch METFORMIN Yes Take by Unive rs HCL 1-15 mouth. ity of (METFORMIN 09:04: [place] ORAL) 10 Medical Branch ATORVASTATI Yes Take by Uni vers N CALCIUM 1-15 mouth. ity of (LIPITOR 09:04: [place] ORAL) 10 Medical Branch GLIPIZIDE Yes Take by Unive rs ORAL 1-15 mouth. ity of 09:04: [place] [address] Medical Branch METFORMIN Yes Take by Unive rs HCL 1-15 mouth. ity of (METFORMIN 09:04: [place] ORAL) 10 Medical Branch ATORVASTATI Yes Take by Uni vers N CALCIUM 1-15 mouth. ity of (LIPITOR 09:04: [place] ORAL) 10 Medical Branch GLIPIZIDE Yes Take by Unive rs ORAL 1-15 mouth. ity of 09:04: [place] [address] Medical Branch METFORMIN Yes Take by Unive rs HCL 1-15 mouth. ity of (METFORMIN 09:04: [place] ORAL) 10 Medical Branch ATORVASTATI Yes Take by Uni vers N CALCIUM 1-15 mouth. ity of (LIPITOR 09:04: [place] ORAL) 10 Medical Branch GLIPIZIDE Yes Take by Unive rs ORAL 1-15 mouth. ity of 09:04: [address] Branch METFORMIN Yes Take by Unive rs HCL 1-15 mouth. ity of (METFORMIN 09:04: [place] ORAL) 10 Medical Branch ATORVASTATI Yes Take by Uni vers N CALCIUM 1-15 mouth. ity of (LIPITOR 09:04: [place] ORAL) [address] [place] [address] Vital Signs Vital Name Observation Time Observation Value Comments Source Body height 2022-10-02 14:10:00 182.9 cm [facility] Body weight 2022-10-02 14:10:00 95.255 kg [facility] BMI 2022-10-02 14:10:00 28.48 kg/m2 [facility] Systolic blood 2021-10-24 14:06:00 124 mm[Hg] Univer sity of pressure [facility] Diastolic blood 2021-10-24 14:06:00 85 mm[Hg] Unive rsity of pressure [facility] Heart rate 2021-10-24 14:06:00 86 /min [facility] Respiratory rate 2021-10-24 14:06:00 18 /min [facility] 2021-10-24 14:06:00 182.9 cm [facility] Body weight 2021-10-24 14:06:00 95.255 kg Universi [facility] BMI 2021-10-24 14:06:00 28.48 kg/m2 [facility] Oxygen saturation in 2021-10-24 14:06:00 99 /min University Arterial blood by [facility] Pulse oximetry Branch Procedures Procedure Date / Time Performed Performing Clinician Rupali diallo [facility] PATIENT FINANCIAL 2023-02-24 14:31:56 Doctor Unassigned, No [facility] POLICY Name Medical Branch PROSTATIC SPECIFIC 2022-11-24 16:00:00 [facility] 2022-11-24 14:38:28 Doctor Unassigned, No [facility] Name Medical Branch REFERRAL- 2022-09-30 06:01:00 Doctor Unassigned, No [facility] REQUEST/RESPONSE Name Medical [place] Encounters Start End Encounter Admission Attending Care Care Encounter Source Date/Time Date/Time Type Type Clinicians Facility Department ID 2023-06-16 2023-06-16 Telephone Iraj [facility] 1.2.840.114 [id number] [facility] 00:00:00 00:00:00 Jami PALMA 350.1.13.10 i ty [facility] [place].2.[place] [phone] In dical NAL 204 [facility] 2023-03-10 2023-03-10 Outpatient R IRAJ [facility] [id number] Univers 10:00:00 10:00:00 [facility] 2023-03-05 2023-03-05 Outpatient R [facility] [id number] Univers 10:00:00 [facility]00[facility]23-[facility]-24 2023-02-24 English Faculty Member 2, Adc Lab [facility] 1.2.840.114 [id number] Univers 10:00:00 10:15:00 [facility] [id number] In dical NAL 353 [facility] 2023-02-24 2023-02-24 [facility] [id number] Univers 10:00:00 10:00:00 [facility] 2023-02-24 2023-02-24 Orders Doctor [place] 1.2.840.114 [id number] Univers 00:00:00 00:00:00 Only Unassigned, GAGAN 350.1.13.10 ity of [place] [facility] 4.2.7.2.686 Brendan as [phone] [address] 2022-11-30 2022-11-30 Telephone Iraj [facility] 1.2.840.114 [id number] Univers 00:00:00 00:00:00 [facility] 350.1.13.10 i ty of [place]2.7.2.686 [place] [phone] In markos [facility] 204 [facility] 2022-11-24 2022-11-24 English Faculty Member Lab, [facility] [id number] Univers 09:45:00 10:05:29 Visit Iraj [facility] 350.1.13.10 ity of [place] 4.2.7.2.686 Brendan as FARIBA?BLEA [id number] In markos [facility] [address] [place] MEDICAL OFFICE [facility] 2022-11-24 2022-11-24 Outpatient R IRAJ [facility] [id number] Univers 09:00:00 09:19:01 [facility] 2022-11-24 2022-11-24 Orders Doctor [place] 1.2.840.114 [id number] Univers 00:00:00 00:00:00 Only Unassigned, GAGAN 350.1.13.10 ity of [place] [facility] 4.2.7.2.686 Brendan as [phone] [address] 2022-10-02 2022-10-02 [facility] [id number] Univers 08:30:00 08:34:54 [facility] 2022-10-02 2022-10-02 [facility] 1.2.840.114 [id number] Univers 08:30:00 08:34:54 Visit [facility] 350.1.13.10 it y of [place] 4.2.7.2.686 Brendan as FARIBA?BLEA [id number] In markos URIAS [address] [place] MEDICAL OFFICE [facility] 2022-09-30 2022-09-30 Orders Doctor [place] 1.2.840.114 [id number] Univers 00:00:00 00:00:00 Only Unassigned, [place]AG[place] 350.1.13.10 ity of [place] [facility] 4.2.7.2.686 Brendan as [phone] [address] 2022-09-23 2022-09-23 Telephone [facility] [id number] Univers 00:00:00 00:00:00 Radha S HEALTH 350.1.13.[address] [facility] 4.2.7.2.686 Brendan as FARIBA?BLEA [phone] In markos URIAS [address] [place] [address] OFFICE [facility] 2021-11-18 2021-11-18 Telephone [facility] [id number] Univers 00:00:00 00:00:00 [facility] HEALTH 350.1.13.10 it y of [place] 4.2.7.2.686 Brendan as FARIBA?BLEA [id number] In markos URIAS [address] [place] [address] OFFICE [facility] 2021-10-24 2021-10-24 Office Radha Ceron [facility] 1.2.840.114 [id number] Univers 08:05:17 08:20:17 Visit Fartun Moore [facility] 350.1.13.[address] [facility] 4.2.7.2.686 Brendan as FARIBA?BLEA [id number] In markos URIAS [address] [place] [address] MEDICAL OFFICE [facility] 2021-10-24 2021-10-24 Outpatient R OSCAR [facility] [id number] Univers 08:15:00 08:15:00 FARTUN schaefer of [facility] 2021-10-24 2021-10-24 Orders Doctor [place] 1.2.840.114 [id number] Univers 00:00:00 00:00:00 Only Unassigned, GAGAN 350.1.13.10 ity of [place] [facility] 4.2.7.2.686 Brendan as [phone] [address] 2020-12-06 2020-12-06 Office [facility] 1.2.840.114 [id number] Univers 08:52:31 09:55:33 Visit Radha Shin [facility] 350.1.13.10 it y of Surgical 4.2.7.2.686 Brendan as Specialti [phone] In dical es [address] [facility] 2020-12-06 2020-12-06 Outpatient [facility] [id number] Univers 09:00:00 09:00:00 RADHA bobbykay [facility] 2020-11-26 2020-11-26 Orders Doctor [place] 1.2.840.114 [id number] Univers 00:00:00 00:00:00 Only Unassigned, [place]AGAN 350.1.13.10 ity of [place] [facility] 4.2.7.2.686 Brendan as [phone] [address] 2020-03-01 2020-03-01 Office Radha Ceron [facility] 1.2.840.114 [id number] Univers 08:09:57 08:24:57 Visit Fartun Moore [facility] 350.1.13.10 ity of Surgical 4.2.7.2.686 Brendan as Specialti [phone] In dical es [address] [facility] 2020-03-01 2020-03-01 [facility] [id number] Univers 08:00:00 08:00:00 FARTUN schaefer [facility] 2020-02-27 2020-02-27 Telephone [facility] 1.2.840.114 [id number] Univers 00:00:00 00:00:00 Fartun Hall [facility] 350.1.13.10 it y of Surgical 4.2.7.2.686 Brendan as Specialti [id number] In dical es 198 [facility] 2020-02-14 2020-02-14 Orders Doctor [place] 1.2.840.114 [id number] Univers 00:00:00 00:00:00 Only Unassigned, GAGAN 350.1.13.10 ity of [place] [facility] 4.2.7.2.686 Brendan as [phone] [address] Results Test Description Test Time Test Comments Results Result Comments Source PROSTATIC SPECIFIC ANTIGEN 2022-11-24 20:47:53 Test Item Value Reference Range Interpretation Comme nts PSA (test code = 5.72 ng/mL See_Comment H [Automated message] The [id number]) system which ge nerated this result tra nsmitted reference range : <=4.00. The reference r adrienne was not used to int erpret this result as elizabeth l/abnormal. CARLI (test code = CARLI) Biotin has been reported to cause a negative bias, interpret results relative to patient's use of biotin. Lab Interpretation (test Abnormal code = 05641-8) [facility] Notes Date/Time Note Provider Source 2023-06-16 Formatting of this note might be differe nt from the original. Linh Del Toro [facility] 12:45:39-00:00 Patient wanting to know abou t atorvastatin refill. Advised patient to contact his PCP. verbalized understanding. [place] BOWLING 2023-06-16 Formatting of this note might be differe nt from the original. Caro Hall Eaton [facility] 10:16:56-00:00 Pt called stating they where expecting medication to be sent from this provider but patient may be confused with ER provider. Please confirm with patient if Dr. Galo sent a medication. Electronically signed by Caro Eaton at 10:29 AM CDT
[2023-06-21 10:02] LABS: Absolute Lymphocytes (CBC) 2.5 K/uL (0.7-4.9); Hematocrit 36.2 % (39.6-49.0); MCV 88.1 fL (80-100); MPV 7.3 fL (7.6-11.3); Platelets 587 thou/uL (152-406); RBC Red Blood Cell Count 4.11 M/uL (4.33-5.43)
[2023-06-21 10:12] LABS: Protime INR 1.18
--- NOTE | 2023-06-21 10:19 | RAD REPORT ---
EXAM DESCRIPTION: RAD - Foot Right 3 View - 06/21/2023 10:12 am CLINICAL HISTORY: Right foot pain and swelling FINDINGS: No fracture or dislocation is seen A large erosion involves the medial aspect of the first metatarsal head. This can be seen with gout a nd osteomyelitis and should be correlated clinically. There appears to be a soft tissue ulceration at this level. Demineralization of the first proximal phalanx may indicate osteomyelitis. Vascular calcifications are noted
[2023-06-21 10:20] LABS: Albumin 2.4 g/dL (3.4-5.0); Bilirubin Total 0.4 mg/dL (0.2-1.0); Potassium 4.2 mEq/L (3.5-5.1); Protein, Total 9.9 g/dL (6.4-8.2)
[2023-06-21] MEDS ORDERED: NA CHLORIDE 0.9% 250 ML ONE (10:39)
[2023-06-21] MEDS ORDERED: VANCOMYCIN 1 GM/VIAL ONE (10:39)
--- NOTE | 2023-06-21 10:47 | ER ---
Nurse's Notes [facility] Name: Adam Hoover Age: 68 yrs Sex: Male : 1955 Arrival Date: 06/21/2023 Time: 09:12 Bed 5 Private MD: Diagnosis: Osteomyelitis, unspecified Presentation: 06/21 09:26 Chief complaint: Patient states: diarrhea x 3 days, pt states "I just feel like I have [facility] no energy and I am weak". Pt also reports decreased appetite. 09:26 Coronavirus screen: diarrhea. Ebola Screen: Patient denies travel to an Ebola-affected [facility] area in the 21 days before illness onset. Initial Sepsis Screen: Does the patient meet any 2 criteria? HR > 90 bpm. Does the patient have a suspected source of infection? No. Patient's initial sepsis screen is negative. Risk Assessment: Do you want to hurt yourself or someone else? Patient reports no desire to harm self or others. Onset of symptoms was May 2023. 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 - Social history:: Smoking status: Patient denies any tobacco usage or history of. Screenin:35 [facility] ED Fall Risk Assessment (Adult) History of falling in the last 3 months, aa5 including since admission No falls in past 3 months (0 pts) Confusion or Disorientation No (0 pts) Intoxicated or Sedated No (0 pts) Impaired Gait Yes (1 pt) Mobility Assist Device Used Yes (1 pt) Altered Elimination No (0 pt) Score/Fall Risk Level 0 - 2 = Low Risk Oriented to surroundings, Maintained a safe environment, Educated pt \\T\\ family on fall prevention, incl call for assistance when getting out of bed. Abuse screen: Denies threats or abuse. Nutritional screening: diarrhea x 3 days. Tuberculosis screening: No symptoms or risk factors identified. Assessment: 09:26 General: Appears comfortable, Behavior is calm, cooperative. Pain: Denies pain. Neuro: aa5 Level of Consciousness is awake, alert, obeys commands, Oriented to person, place, time, situation. Cardiovascular: Heart tones S1 S2 present Rhythm is sinus tachycardia. Respiratory: Airway is patent Respiratory effort is even, unlabored, Respiratory pattern is regular, symmetrical. GI: Abdomen is round non-distended, Bowel sounds present X 4 quads. Abd is soft and non tender X 4 quads. Reports diarrhea, decreased appetite Patient currently denies nausea, vomiting. : No signs and/or symptoms were reported regarding the genitourinary system. EENT: No signs and/or symptoms were reported regarding the EENT system. Derm: Skin is dry, Skin is normal, Skin temperature is warm Decubitus located on right foot: quater-sized wound noted to lateral aspect of ball of right foot noted, dime-sized wound noted to top of right great toe, cracked skin with whitish drainage noted between right toes. Musculoskeletal: left leg prosthesis noted. 10:06 Reassessment: Wound care completed to right foot per BUSINESS TECHNOLOGY ARCHITECT VO. Right foot wounds cleaned aa5 with saline, dressed with non-adherent dressing and Kerlix. . 10:34 Reassessment: To bedside to medicate pt, pt currently using urinal, will return later. .aa5 11:00 Neuro: Level of Consciousness is awake, alert, obeys commands, Oriented to person, aa5 place, time, situation. Respiratory: Airway is patent Respiratory effort is even, unlabored, Respiratory pattern is regular, symmetrical. Derm: Skin is dry, Skin is normal, Skin temperature is warm. 12:40 Reassessment: Awaiting room assignment, pt notified of wait time. . Neuro: Level of aa5 Consciousness is awake, alert, obeys commands, Oriented to person, place, time, situation. Respiratory: Airway is patent Respiratory effort is even, unlabored, Respiratory pattern is regular, symmetrical. Derm: Skin is dry, Skin is normal, Skin temperature is warm. 13:15 Reassessment: Lunch tray given to patient. . aa5 13:37 Neuro: Level of Consciousness is awake, alert, obeys commands, Oriented to person, aa5 place, time, situation. Respiratory: Airway is patent Respiratory effort is even, unlabored, Respiratory pattern is regular, symmetrical. Derm: Skin is dry, Skin is normal, Skin temperature is warm. 14:30 Reassessment: Dr. Carrasco at bedside . aa5 Vital Signs: 09:26 BP 135 / 85; Pulse 108; Resp 18 S; Temp 97.9(O); Pulse Ox 98% on R/A; Weight 83.46 kg aa5 (R); Height 6 ft. 0 in. (R); 11:00 BP 126 / 81; Pulse 98; Resp 16 S; Pulse Ox 98% on R/A; aa5 12:58 BP 117 / 76; Pulse 97; Pulse Ox 99% on R/A; ap3 09:26 Body Mass Index 24.95 (83.46 kg, 182.88 cm) aa5 ED Course: 09:17 Patient arrived in ED. im 09:17 Laura Bustamante FNP-C is PHCP. kb 09:17 Bashir Santiago MD is Attending Physician. kb 09:19 Violetta Ramirez, TAWNYA is Primary Nurse. aa5 09:26 Arm band placed on Patient placed in an exam room, on a stretcher. iw 09:26 Patient has correct armband on for positive identification. Placed in gown. Bed in low aa5 position. Call light in reach. Side rails up X2. Client placed on continuous cardiac and pulse oximetry monitoring. NIBP monitoring applied. 09:35 Triage completed. aa5 09:49 Ptt, Activated Sent. aa5 09:49 Missed attempt(s): 22 gauge in right antecubital area. CMP Sent, Lactate w/ 2H reflex aa5 if indic., Protime (+inr), CBC with Diff Sent. 09:49 First set of blood cultures drawn by ED staff. aa5 10:05 Inserted saline lock: 20 gauge in right antecubital area, using aseptic technique. aa5 10:05 Second set of blood cultures drawn by me. aa5 10:14 Foot Right 3 View XRAY In Process Unspecified. EDMS 10:46 Davis Carrasco MD is Hospitalizing Provider. kb 14:40 No provider procedures requiring assistance completed. Patient admitted, IV remains in aa5 place. Administered Medications: 10:40 Drug: vancoMYCIN IVPB 1 grams Route: IVPB; Infused Over: 2 hrs; Site: right antecubital;aa5 11:00 Follow up: Response: No adverse reaction aa5 12:40 Follow up: IV Status: Completed infusion aa5 12:55 Drug: Cefepime IVPB 1 grams Route: IVPB; Rate: 200 ml/hr; Infused Over: 30 mins; Site: aa5 right antecubital; 13:27 Follow up: IV Status: Completed infusion ap3 Medication: 14:40 VIS not applicable for this client. aa5 Outcome: 10:46 Decision to Hospitalize by Provider. kb 14:40 Admitted to Med/surg accompanied by tech, via wheelchair, with chart, Report called to aa5 Alba Moran RN 14:40 Condition: stable aa5 14:40 Instructed on the need for admit, Demonstrated understanding of instructions. 15:04 Patient left the ED. aa5 Signatures: Dispatcher [employer] EDMS Laura Bustamante, LEAD SUSTAINABILITY SPECIALIST-C LEAD SUSTAINABILITY SPECIALIST-CkAimee Larkin RN RN Violetta Ramirez RN RN aa5 Blossom Lucio RN RN ap3 Dimitri Harvey rs5 Rola Wong Corrections: (The following items were deleted from the chart) 10: 09:57 Missed attempt(s): 22 gauge in right antecubital area. [facility]5 10: 09:57 CBC+H.LAB.BRZ drawn and sent. [place] [id number] 10: 09:57 COMPREHENSIVE METABOLIC PANEL+C.LAB.BRZ drawn and sent. [place] [id number] 10: 09:57 LACTATE+C.LAB.BRZ drawn and sent. [place] [id number] 10: 09:58 PROTIME (+INR)+COAG.LAB.BRZ drawn and sent. [place] [address] 10: 09:58 PTT, ACTIVATED+COAG.LAB.BRZ drawn and sent. [place] [id number] 10: 09:49 CBC+H.LAB.BRZ drawn and sent. [facility]5 10: 09:26 Derm: Skin is dry, Skin is normal, Skin temperature is warm Decubitus located on aa5 right foot: quater-sized wound noted to lateral aspect of ball of right foot noted, dime-sized wound noted to top of right great toe, cracked skin with whitish drainage noted between right toes. aa5 10: 09:26 Musculoskeletal: left leg prosthesis noted. aa5 aa5 10: 09:26 Musculoskeletal: left leg prosthesis noted. 5 aa5 12:59 12:58 BP 173 / 65; Pulse 46bpm; Pulse Ox 99% RA; ap3 ap3
--- NOTE | 2023-06-21 10:47 | EDPHYS ---
Physician Documentation [facility] Name: Adam Hoover Age: 68 yrs Sex: Male : 1955 Arrival Date: 06/21/2023 Time: 09:12 Bed 5 Private MD: ED Physician Bashir Santiago HPI: 06/21 09:53 This 68 yrs old Black Male presents to ER via Wheelchair with complaints of Diarrhea, kb Abdominal Pain. 09:53 The patient presents to the emergency department with diarrhea. Onset: The kb symptoms/episode began/occurred yesterday. Possible causes: unknown. The symptoms are aggravated by nothing. The symptoms are alleviated by nothing. Associated signs and symptoms: Pertinent positives: diarrhea, malaise, open wound. Severity of symptoms: At their worst the symptoms were moderate in the emergency department the symptoms are unchanged. The patient has not experienced similar symptoms in the past. The patient has not recently seen a physician. Pt reports diarrhea, decreased appetite and weakness that started yesterday. States he also has a foot wound on the right side and isn't sure if that has anything to do with this. Denies fever. Historical: - Allergies: 09:35 No Known Allergies; aa5 - PMHx: 09:26 Diabetes - NIDDM; Hypertensive disorder; iw 09:37 chronic wound to right foot; aa5 - PSHx: 09:26 L foot amputation; iw - Immunization history:: Adult Immunizations unknown. - Social history:: Smoking status: Patient denies any tobacco usage or history of. ROS: 09:49 Respiratory: Negative for shortness of breath, cough, wheezing, and pleuritic chest kb pain. 09:49 Constitutional: Positive for malaise, poor PO intake. 09:49 Abdomen/GI: Positive for diarrhea, Negative for abdominal pain, nausea and vomiting. 09:49 Skin: Positive for ulceration, of the medial aspect of right toes and plantar aspect of right first toe, open wound, drainage. 09:49 All other systems are negative. 09:55 Neuro: Positive for weakness. kb Exam: 09:51 Constitutional: This is a well developed, well nourished patient who is awake, alert, kb and in no acute distress. Head/Face: Normocephalic, atraumatic. ENT: Moist Mucous membranes Cardiovascular: Regular rate and rhythm with a normal S1 and S2. No gallops, murmurs, or rubs. No pulse deficits. Respiratory: Respirations even and unlabored. No increased work of breathing. Talking in full sentences Abdomen/GI: Soft, non-tender. No distention MS/ Extremity: Pulses equal, no cyanosis. Neurovascular intact. Full, normal range of motion. Neuro: Awake and alert, GCS 15, oriented to person, place, time, and situation. Moves all extremities. Normal gait. 09:51 Skin: lesion(s), located on the plantar aspect of right first toe and medial aspect of right toes. 10:06 ECG was reviewed by the Attending Physician. Vital Signs: 09:26 BP 135 / 85; Pulse 108; Resp 18 S; Temp 97.9(O); Pulse Ox 98% on R/A; Weight 83.46 kg aa5 (R); Height 6 ft. 0 in. (R); 11:00 BP 126 / 81; Pulse 98; Resp 16 S; Pulse Ox 98% on R/A; aa5 12:58 BP 117 / 76; Pulse 97; Pulse Ox 99% on R/A; ap3 09:26 Body Mass Index 24.95 (83.46 kg, 182.88 cm) aa5 MDM: 09:18 Patient medically screened. 09:51 Data reviewed: vital signs, nurses notes. kb 10:44 Differential diagnosis: viral gastroenteritis, osteomyelitis. Consideration of kb Admission/Observation Patient was admitted/placed on observation. Escalation of care including admission/observation considered. Management of patient was discussed with the following: Primary Care Provider: Dr Carrasco. Historians other than the Patient: Spouse/Significant Other: . Care significantly affected by the following chronic conditions: Diabetes, Hypertension. Counseling: I had a detailed discussion with the patient and/or guardian regarding: the historical points, exam findings, and any diagnostic results supporting the discharge/admit diagnosis, lab results, radiology results, the need for further work-up and treatment in the hospital. 06/21 09:38 Order name: Blood Culture Adult (2) 06/21 09:38 Order name: CBC with Diff; Complete Time: 10:05 kb 06/21 09:38 Order name: CMP; Complete Time: 10:23 kb 06/21 09:38 Order name: Lactate w/ 2H reflex if indic.; Complete Time: 10:23 kb 06/21 09:38 Order name: Protime (+inr); Complete Time: 10:20 kb 06/21 09:38 Order name: Ptt, Activated; Complete Time: 10:20 kb 06/21 09:42 Order name: Wound Culture kb 06/21 10:15 Order name: Glucose, Ancillary Testing; Complete Time: 10:20 EDMS 06/21 09:38 Order name: Foot Right 3 View XRAY; Complete Time: 10:20 kb 06/21 09:38 Order name: EKG; Complete Time: 09:41 kb 06/21 12:29 Order name: Diet Ada 1800 Riley; Complete Time: 12:30 aa5 06/21 12:30 Order name: Diet Ada 1800 Riley; Complete Time: 12:30 aa5 06/21 09:38 Order name: Accucheck; Complete Time: 10:06 kb 06/21 09:38 Order name: Cardiac monitoring; Complete Time: 10:06 kb 06/21 09:38 Order name: EKG - Nurse/Tech; Complete Time: 10:06 kb 06/21 09:38 Order name: IV Saline Lock - Large Bore; Complete Time: 10:06 kb 06/21 09:38 Order name: Labs collected and sent; Complete Time: 10:06 kb 06/21 09:38 Order name: O2 Per Protocol; Complete Time: 09:57 kb 06/21 09:38 Order name: O2 Sat Monitoring; Complete Time: 09:57 kb 06/21 09:38 Order name: Vital Signs; Complete Time: 10:06 kb 06/21 10:06 Order name: Wound Care; Complete Time: 10:06 aa5 EC:06 Rate is 101 beats/min. Rhythm is regular. QRS Shepherd is Normal. [place] interval is normal at kb 152 msec. QRS interval is normal at 78 msec. QT interval is normal at 482 msec. Administered Medications: 10:40 Drug: vancoMYCIN IVPB 1 grams Route: IVPB; Infused Over: 2 hrs; Site: right antecubital;aa5 11:00 Follow up: Response: No adverse reaction aa5 12:40 Follow up: IV Status: Completed infusion aa5 12:55 Drug: Cefepime IVPB 1 grams Route: IVPB; Rate: 200 ml/hr; Infused Over: 30 mins; Site: aa5 right antecubital; 13:27 Follow up: IV Status: Completed infusion ap3 Disposition: 15:35 Co-signature as Attending Physician, Bashir Santiago MD I reviewed the patient's care rt provided by the Advanced Practice Provider and agree with the diagnosis and treatment plan. Disposition Summary: 06/21/23 10:46 Hospitalization Ordered Hospitalization Status: Inpatient Admission kb Provider: Davis Carrasco Location: Telemetry/MedSur (Inpatient) kb Condition: Stable kb Problem: new kb Symptoms: are unchanged kb Bed/Room Type: Standard kb Room Assignment: 214(06/21/23 13:54) bd Diagnosis - Osteomyelitis, unspecified kb Forms: - Medication Reconciliation Form kb - SBAR form kb Signatures: Dispatcher [employer] EDMS Laura Bustamante FNP-C RADIOLOGY INTERVENTIONAL PHYSICIAN-Annemarie Patel Irene, RN TAWNYA iw Violetta Ramirez RN RN aa5 Bashir Santiago MD MD rt Blossom Lucio RN ap3 Corrections: (The following items were deleted from the chart) 09:55 09:49 Constitutional: Positive for malaise, kb kb 13:54 10:46 kb bd
[2023-06-21] MEDS ORDERED: CEFEPIME 1 GM/VIAL ONE (11:03)
[2023-06-21] MEDS ORDERED: NA CHLORIDE 0.9% 100 ML ONE (11:03)
[2023-06-21] MEDS ORDERED: LIDOCAINE 2% INJ, 20 mL 20 ML ONE (14:50)
--- NOTE | 2023-06-21 15:08 | P.HP ---
Certification for Inpatient Patient admitted to: Inpatient With expected LOS: >2 Midnights Patient will require the following post-hospital care: [facility] Practitioner: I am a practitioner with admitting privileges, knowledge of patient current condition, hospital course, and medical plan of care. Services: Services provided to patient in accordance with Admission requirements found in Title 42 Section 412.3 of the Code of Federal Regulations Patient History Date of Service: 06/21/23 Primary Care Provider: Danilo Reason for admission: osteomyelitis of the right foot. 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 He has a history of diabetes, htn and hyperlipidemia. The patient has 3 wounds On the right foot that I have been treating in the wound care center. He has been improving. However has been feeling poorly for the past week. The patient came into the office and Mrs. Anton has increased his insulin. (unknow to us he has been drinking grapefruit juice) The patient was not feeling well. His blood sugar this morning was 182. Came to the ER. I had discussed this with them. He has an elevated wbc and possible osteomyelitis of the foot. Allergies No Known Drug Allergies Allergy (Verified 03/31/23 08:09) Unknown Home Medications: Dapagliflozin/Metformin HCl [Xigduo Xr 5 mg-1,000 mg Tablet] 1 tab PO DAILY 03/30/23 Losartan Potassium 50 mg PO DAILY 03/30/23 Lovastatin 40 mg PO DAILY 03/30/23 Insulin Degludec [Tresiba Flextouch U-100] 10 unit SQ DAILY 30 Days #10 ml 04/01/23 Smz./Tmp. [Bactrim Ds 800 MG/160 MG] 1 each PO DAILY 5 Days #10 tab 04/01/23 - Past Medical/Surgical History Diabetic: Yes -: diabetes -: hypertension -: left bka - Social History Alcohol use: No CD- Drugs: No Caffeine use: No Review of Systems 10-point ROS is otherwise unremarkable Integumentary: Other (diabetic ulcers on the right foot.) Physical Examination - Physical Exam General: Alert, In no apparent distress HEENT: Atraumatic, PERRLA, Mucous membr. moist/pink, EOMI, Sclerae nonicteric Neck: Supple, 2+ carotid pulse no bruit, No LAD, Without JVD or thyroid abnormality Respiratory: Clear to auscultation bilaterally, Normal air movement Cardiovascular: Regular rate/rhythm, Normal S1 S2 Gastrointestinal: Normal bowel sounds, No tenderness Musculoskeletal: No tenderness Integumentary: No rashes, Diabetic ulcer (improvement of the right great toe wound and the right lateral 4th toe wound. The patient has been some increased in the yellow base of the right medial plantar wound with some serosanguenous discharge. ) Neurological: Normal gait, Normal speech, Normal strength at 5/5 x4 extr, Normal tone, Normal affect Lymphatics: No axilla or inguinal lymphadenopathy - Studies Laboratory Data (last 24 hrs) 06/21/23 06/21/23 06/21/23 09:49 09:49 09:49 WBC 13.80 H Hgb 11.7 L Hct 36.2 L Plt Count 587 H PT 13.0 H INR 1.18 APTT 35.3 Sodium 133 L Potassium 4.2 BUN 27 H Creatinine 1.27 Glucose 222 H Total Bilirubin 0.4 AST 9 L ALT 13 L Alkaline Phosphatase 106 Assessment and Plan - Problems (Diagnosis) (1) Osteomyelitis due to type 2 diabetes mellitus Current Visit: Yes Status: Acute Plan: will admit the patient and start him vancomycin and meropenem. Will get a MRI to confirm the diagnosis. We have drawn blood cultures as well. Will order a picc line for the patient. Will start some fluids as well to improve his sugars, improve circulation as well. (2) Open wound of plantar aspect of right foot Current Visit: No Status: Acute (3) Type 2 diabetes mellitus with foot ulcer Current Visit: No Status: Acute Qualifiers: Diabetes mellitus long lines operator insulin use: without long lines operator use Qualified C ode(s): E11.621 - Type 2 diabetes mellitus with foot ulcer; L97.509 - Non- pressure chronic ulcer of other part of unspecified foot with unspecified severity (4) Essential (primary) hypertension Current Visit: No Status: Chronic Plan: restart losartan. Will adjust as needed. (5) Hyperlipidemia Current Visit: Yes Status: Acute Plan: On lovastatin as an option. Will restart Qualifiers: Hyperlipidemia type: mixed hyperlipidemia Qualified Code(s): E78.2 - Mixed hyperlipidemia Discharge Plan: Home Plan to discharge in: Greater than 2 days - Advance Directives Does patient have a Living Will: No Does patient have a Durable POA for Healthcare: No - Code Status/Comfort Care Code Status Assessed: Yes Code Status: Full Code Physician Review: Patient Assessed, Agree with Above Assessment and Plan Critical Care: No Time Spent Managing Pts Care (In Minutes): 50
[2023-06-21] MEDS ORDERED: NA CHLORIDE 0.9% 1,000 ML IV SCH (16:00)
[2023-06-21] MEDS ORDERED: ONDANSETRON 4 MG/2 ML VIAL IV PRN (16:23)
[2023-06-21] MEDS ORDERED: D10W 250 ML BAG IV PRN (16:23)
[2023-06-21] MEDS ORDERED: GLUCAGON 1 MG/VIAL IM PRN (16:23)
[2023-06-21] MEDS ORDERED: HYDRALAZINE HCL 20 MG/ML VIAL IV PRN (16:23)
[2023-06-21] MEDS ORDERED: VANCOMYCIN 2 GM in NA CHLORIDE 0.9% 500 ML IVPB ONE (17:00)
[2023-06-21] MEDS ORDERED: VANCOMYCIN 2 GM in NA CHLORIDE 0.9% 250 ML IVPB ONE (17:00)
[2023-06-21] MEDS ORDERED: VANCOMYCIN 1.5 GM in NA CHLORIDE 0.9% 250 ML IVPB SCH (17:00)
[2023-06-21] MEDS: INSULIN -REGULAR HUMAN 50 UNIT/0.5 ML ML SQ SCH ×2 (17:45→21:46)
[2023-06-21] MEDS: HYDROMORPHONE HCL 0.5 MG/0.5 ML INJ IV PRN (17:51)
[2023-06-21] MEDS: Meropenem 1,000 MG in NA CHLORIDE 0.9% 100 ML IV SCH (17:53)
[2023-06-21] MEDS: ENOXAPARIN 40 MG/0.4 ML SQ SCH (18:01)
[2023-06-21 19:57] VITALS: BMI 24.9
[2023-06-21] MEDS: Mupirocin NASAL 2 APPL/1 GM TUBE NAS SCH (21:46)
[2023-06-22] MEDS: HYDROMORPHONE HCL 0.5 MG/0.5 ML INJ IV PRN (00:43)
[2023-06-22] MEDS: Meropenem 1,000 MG in NA CHLORIDE 0.9% 100 ML IV SCH ×3 (00:43→17:44)
[2023-06-22 03:43] LABS: Absolute Lymphocytes (CBC) 1.8 K/uL (0.7-4.9); Hematocrit 30.1 % (39.6-49.0); Lymphocytes % 16.1 % (15.3-44.8); MCV 87.1 fL (80-100); MPV 7.4 fL (7.6-11.3); Platelets 514 thou/uL (152-406); RBC Red Blood Cell Count 3.46 M/uL (4.33-5.43)
[2023-06-22 04:05] LABS: Potassium 3.8 mEq/L (3.5-5.1)
[2023-06-22] MEDS: INSULIN -REGULAR HUMAN 50 UNIT/0.5 ML ML SQ SCH ×4 (07:30→21:25)
--- NOTE | 2023-06-22 07:36 | RAD REPORT ---
EXAM DESCRIPTION: US - Lower Extremity Arterial Bilat - 06/21/2023 11:57 pm CLINICAL HISTORY: osteomyelitis Leg pain, claudication COMPARISON: LOW EXT ARTERY UNI LTD dated 01/27/2014 TECHNIQUE: Bilateral lower extremity arterial Doppler examination was performed with waveform tracin g and velocity measurements. FINDINGS: Triphasic flow is seen right common femoral artery. Monophasic flow noted right superficial femoral a rtery to the posterior tibial artery. Triphasic flow seen entire left lower extremity arterial system except monophasic waveform left dorsa lis pedis. No complete occlusions. IMPRESSION: Mild peripheral vascular disease involving the right the lower extremity arterial system as detailed. No complete occlusion or high-grade stenosis evident.
--- NOTE | 2023-06-22 08:30 | P.PN ---
Subjective Date of Service: 06/22/23 Primary Care Provider: Danilo Chief Complaint: osteomyelitis of the right foot. Subjective: Improving Review of Systems 10-point ROS is otherwise unremarkable Integumentary: Other (right diabetic foot ulcer ) Physical Examination - Vital Signs Temperature: 98.7 F Blood Pressure: 104/59 Pulse: 91 Respirations: 16 Pulse Ox (%): 96 - Physical Exam General: Alert, In no apparent distress HEENT: Atraumatic, PERRLA, EOMI Neck: Supple, JVD not distended Respiratory: Clear to auscultation bilaterally, Normal air movement Cardiovascular: Regular rate/rhythm, Normal S1 S2 Gastrointestinal: Normal bowel sounds, No tenderness Musculoskeletal: No tenderness Integumentary: No rashes, Diabetic ulcer (right foot ) Neurological: Normal speech, Normal tone, Normal affect Lymphatics: No axilla or inguinal lymphadenopathy - Studies Laboratory Data (last 24 hrs) 06/21/23 06/21/23 06/21/23 09:49 09:49 09:49 WBC 13.80 H Hgb 11.7 L Hct 36.2 L Plt Count 587 H PT 13.0 H INR 1.18 APTT 35.3 Sodium 133 L Potassium 4.2 BUN 27 H Creatinine 1.27 Glucose 222 H Total Bilirubin 0.4 AST 9 L ALT 13 L Alkaline Phosphatase 106 Assessment And Plan - Current Problems (Diagnosis) (1) Osteomyelitis due to type 2 diabetes mellitus Current Visit: Yes Status: Acute Plan: will admit the patient and start him vancomycin and meropenem. Will get a MRI to confirm the diagnosis. We have drawn blood cultures as well. Will order a picc line for the patient. Will start some fluids as well to improve his sugars, improve circulation as well. 8/ gram + cocci will await antibiotigram for specific antibiotic (2) Open wound of plantar aspect of right foot Current Visit: No Status: Acute (3) Type 2 diabetes mellitus with foot ulcer Current Visit: No Status: Acute Qualifiers: Diabetes mellitus nursing home insulin use: without nursing home use Qualified Code(s): E11.621 - Type 2 diabetes mellitus with foot ulcer; L97.509 - Non- pressure chronic ulcer of other part of unspecified foot with unspecified severity (4) Essential (primary) hypertension Current Visit: No Status: Chronic Plan: restart losartan. Will adjust as needed. (5) Hyperlipidemia Current Visit: Yes Status: Acute Plan: On lovastatin as an option. Will restart Qualifiers: Hyperlipidemia type: mixed hyperlipidemia Qualified Code(s): E78.2 - Mixed hyperlipidemia Discharge Plan: Home Plan to discharge in: 24 Hours - Code Status/Comfort Care Code Status Assessed: No Physician Review: Patient Assessed, Agree with Above Assessment and Plan Critical Care: No Time Spent Managing PTS Care (In Minutes): 20
[2023-06-22] MEDS: INSULIN GLARGINE 100 UNIT/ML SQ SCH (08:35)
[2023-06-22] MEDS: Mupirocin NASAL 2 APPL/1 GM TUBE NAS SCH ×2 (08:45→21:27)
[2023-06-22] MEDS: PANTOPRAZOLE 40MG TABLET PO SCH (08:45)
[2023-06-22] MEDS: LOSARTAN POTASSIUM 50 MG TABLET PO SCH (08:45)
--- NOTE | 2023-06-22 12:23 | RAD REPORT ---
EXAM DESCRIPTION: MRI - Foot Right Wo Cont - 06/22/2023 11:39 am CLINICAL HISTORY: osteomyelitis of the right foot Pain and swelling COMPARISON: Foot Right 3 View dated 06/21/2023 FINDINGS: Significant abnormal signal is seen involving the fourth toe. The majority of the fourth t oe is involved with bony destructive changes involving the proximal, middle and distal phalanx. The f ourth metatarsal including the metatarsal head appears preserved. Significant abnormal signal with elevated T2 signal adjacent soft tissue ulceration is seen involving the distal aspect of the first metatarsal. The base of the proximal phalanx of the first toe is also involved. Large soft tissue ulcerations are present along the medial margin of the great toe and forefoot as we ll as along the dorsum of the lateral aspect of the forefoot. No well-formed fluid collections. IMPRESSION: Significant osteomyelitis is seen involving the distal first metatarsal and base of the proximal phalanx of the first toe. Advanced osteomyelitis also involves the majority of fourth toe as detailed.
--- NOTE | 2023-06-22 15:12 | RAD REPORT ---
EXAM DESCRIPTION: RAD - Chest Single View - 06/22/2023 3:00 pm CLINICAL HISTORY: Device placement PICC line placement IMPRESSION: PICC line with its tip in the distal superior vena cava
[2023-06-22] MEDS ORDERED: VANCOMYCIN 1.5 GM in NA CHLORIDE 0.9% 250 ML IVPB SCH (17:00)
[2023-06-22] MEDS: ENOXAPARIN 40 MG/0.4 ML SQ SCH (17:42)
[2023-06-22] MEDS: ACETAMINOPHEN 500 MG TAB PO PRN (18:04)
[2023-06-22] MEDS: VANCOMYCIN 1.5 GM in NA CHLORIDE 0.9% 500 ML IVPB SCH (18:07)
[2023-06-22] MEDS: JUVEN PACKET PO SCH (21:27)
[2023-06-23] MEDS: Meropenem 1,000 MG in NA CHLORIDE 0.9% 100 ML IV SCH ×2 (00:57→09:01)
[2023-06-23] MEDS: PANTOPRAZOLE 40MG TABLET PO SCH (09:02)
[2023-06-23] MEDS: LOSARTAN POTASSIUM 50 MG TABLET PO SCH (09:02)
[2023-06-23] MEDS: INSULIN -REGULAR HUMAN 50 UNIT/0.5 ML ML SQ SCH ×4 (09:03→20:01)
[2023-06-23] MEDS: Mupirocin NASAL 2 APPL/1 GM TUBE NAS SCH ×2 (09:03→19:50)
[2023-06-23] MEDS: INSULIN GLARGINE 100 UNIT/ML SQ SCH (09:04)
[2023-06-23] MEDS: JUVEN PACKET PO SCH ×2 (09:16→19:51)
--- NOTE | 2023-06-23 10:02 | P.PN ---
Subjective Date of Service: 06/23/23 Primary Care Provider: Danilo Chief Complaint: osteomyelitis of the right foot. Subjective: No new changes Review of Systems 10-point ROS is otherwise unremarkable Physical Examination - Vital Signs Temperature: 98.6 F Blood Pressure: 115/74 Pulse: 97 Respirations: 16 Pulse Ox (%): 98 - Physical Exam General: Alert, In no apparent distress HEENT: Atraumatic, PERRLA, EOMI Neck: Supple, JVD not distended Respiratory: Clear to auscultation bilaterally, Normal air movement Cardiovascular: Regular rate/rhythm, Normal S1 S2 Gastrointestinal: Normal bowel sounds, No tenderness Musculoskeletal: No tenderness Integumentary: No rashes Neurological: Normal speech, Normal tone, Normal affect Lymphatics: No axilla or inguinal lymphadenopathy - Studies Microbiology Data (last 24 hrs): 06/21/23 09:45 Wound - Right Foot Gram Stain - Final Assessment And Plan - Current Problems (Diagnosis) (1) Osteomyelitis due to type 2 diabetes mellitus Current Visit: Yes Status: Acute Plan: will admit the patient and start him vancomycin and meropenem. Will get a MRI to confirm the diagnosis. We have drawn blood cultures as well. Will order a picc line for the patient. Will start some fluids as well to improve his sugars, improve circulation as well. 06/23 MRI is positive for osteomyelitis. He has negative blood cultures. 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 Will adjust as needed. (5) Hyperlipidemia Current Visit: Yes Status: Acute Plan: On lovastatin as an option. Will restart Qualifiers: Hyperlipidemia type: mixed hyperlipidemia Qualified Code(s): E78.2 - Mixed hyperlipidemia Discharge Plan: Home Plan to discharge in: 24 Hours - Code Status/Comfort Care Code Status Assessed: No Physician Review: Patient Assessed, Agree with Above Assessment and Plan Critical Care: No Time Spent Managing PTS Care (In Minutes): 20
[2023-06-23] MEDS: ACETAMINOPHEN 500 MG TAB PO PRN ×2 (10:09→19:52)
[2023-06-23 10:52] VITALS: O2SAT 98
[2023-06-23] MEDS: ENOXAPARIN 40 MG/0.4 ML SQ SCH (17:18)
[2023-06-23] MEDS: VANCOMYCIN 1.5 GM in NA CHLORIDE 0.9% 500 ML IVPB SCH (17:19)
--- NOTE | 2023-06-23 17:43 | EKG ---
Test Date: 2023-06-21 Test Time: 09:56:39 Car Bracer: BRITTANY MEASUREMENT RESULTS: Intervals: Rate: 101 WI: 152 QRSD: 78 QT: 372 QTc: 482 [place]: P: 66 WI: 152 QRS: -12 T: -13 INTERPRETIVE STATEMENTS: Sinus tachycardia with premature atrial complexes Nonspecific T wave abnormality Abnormal ECG Compared to ECG 03/30/2023 09:55:16 Atrial premature complex(es) now present T-wave abnormality now present Sinus rhythm no longer present ST (T wave) deviation no longer present Prolonged QT interval no longer present Electronically Signed On 06-23-23 17:36:05 CDT by Neal Garcia
[2023-06-23] MEDS ORDERED: ATORVASTATIN 20 MG TAB PO SCH (21:00)
[2023-06-23] MEDS ORDERED: SMZ./TMP. 800/160 MG TABLET PO SCH (21:00)
[2023-06-24] MEDS: ACETAMINOPHEN 500 MG TAB PO PRN (04:30)
--- NOTE | 2023-06-24 08:39 | P.DS ---
Admission Date: 06/21/23 Discharge Date: 06/24/23 Primary Care Provider: Danilo Disposition: ROUTINE DISCHARGE Discharge Condition: GOOD Reason for Admission: osteomyelitis of the right foot. - Problems (1) Osteomyelitis due to type 2 diabetes mellitus Current Visit: Yes Status: Acute (2) Open wound of plantar aspect of right foot Current Visit: No Status: Acute (3) Type 2 diabetes mellitus with foot ulcer Current Visit: No Status: Acute Qualifiers: Diabetes mellitus intermediate designer insulin use: without fci use Qualified Code(s): E11.621 - Type 2 diabetes mellitus with foot ulcer; L97.509 - Non- pressure chronic ulcer of other part of unspecified foot with unspecified severity (4) Essential (primary) hypertension Current Visit: No Status: Chronic (5) Hyperlipidemia Current Visit: Yes Status: Acute Qualifiers: Hyperlipidemia type: mixed hyperlipidemia Qualified Code(s): E78.2 - Mixed hyperlipidemia Brief History of Present Illness: 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 He has a history of diabetes, htn and hyperlipidemia. The patient has 3 wounds On the right foot that I have been treating in the wound care center. He has been improving. However has been feeling poorly for the past week. The patient came into the office and Mrs. Anton has increased his insulin. (unknow to us he has been drinking grapefruit juice) The patient was not feeling well. His blood sugar this morning was 182. Came to the ER. I had discussed this with them. He has an elevated wbc and possible osteomyelitis of the foot. Hospital Course: patient was admitted for hyperglycemia and worsening pain in his foot. He had a MRI of the foot which showed osteomyelitis. A picc line was placed. Wound cultures showed a klebsiella group. The patient will be on ceftrixone for 6 weeks and bactrim po bid for staph coverage Vital Signs/Physical Exam: Temp Pulse Resp BP Pulse Ox 98.0 F 85 16 147/90 H 98 06/24/23 04:00 06/24/23 04:00 06/24/23 04:00 06/24/23 04:00 06/24/23 04:00 General: Alert, In no apparent distress HEENT: Atraumatic, PERRLA, EOMI Neck: Supple, JVD not distended Respiratory: Clear to auscultation bilaterally, Normal air movement Cardiovascular: Regular rate/rhythm, Normal S1 S2 Gastrointestinal: Normal bowel sounds, No tenderness Musculoskeletal: No tenderness Integumentary: No rashes Neurological: Normal speech, Normal tone, Normal affect Lymphatics: No axilla or inguinal lymphadenopathy Laboratory Data at Discharge: WBC 11.00 thou/uL (4.3-10.9) H 06/22/23 02:26 Hgb 9.8 g/dL (13.6-17.9) L D 06/22/23 02:26 Hct 30.1 % (39.6-49.0) L 06/22/23 02:26 Plt Count 514 thou/uL (152-406) H 06/22/23 02:26 PT 13.0 SECONDS (9.5-12.5) H 06/21/23 09:49 INR 1.18 06/21/23 09:49 APTT 35.3 SECONDS (24.3-36.9) 06/21/23 09:49 Sodium 133 mEq/L (136-145) L 06/22/23 02:26 Potassium 3.8 mEq/L (3.5-5.1) 06/22/23 02:26 BUN 28 mg/dL (7-18) H 06/22/23 02:26 Creatinine 1.19 mg/dL (0.70-1.30) 06/22/23 02:26 Glucose 207 mg/dL (74-106) H 06/22/23 02:26 Total Bilirubin 0.4 mg/dL (0.2-1.0) 06/21/23 09:49 AST 9 U/L (15-37) L 06/21/23 09:49 ALT 13 U/L (16-61) L 06/21/23 09:49 Alkaline Phosphatase 106 U/L (45-117) 06/21/23 09:49 Home Medications: Dapagliflozin/Metformin HCl [Xigduo Xr 5 mg-1,000 mg Tablet] 1 tab PO DAILY 03/30/23 Losartan Potassium 50 mg PO DAILY 03/30/23 Lovastatin 40 mg PO DAILY 03/30/23 Insulin Degludec [Tresiba Flextouch U-100] 30 unit SQ DAILY 06/21/23 Smz./Tmp. [Bactrim Ds 800 MG/160 MG] 1 tab PO BID 30 Days #60 tab 06/24/23 New Medications: Smz./Tmp. [Bactrim Ds 800 MG/160 MG] 1 tab PO BID 30 Days #60 tab Followup: Davis Carrasco MD [Primary Care Provider] - Time spent managing pt's care (in minutes): 30
[2023-06-24] MEDS ORDERED: CEFTRIAXONE 1,000 MG in NA CHLORIDE 0.9% 50 ML IVPB SCH (09:00)
[2023-06-24] MEDS ORDERED: [UNRECOGNIZED DRUG - OTHER] PO SCH (09:00)
[2023-06-24] MEDS ORDERED: DAPAGLIFLOZIN PO SCH (09:00)
[2023-06-24] MEDS ORDERED: LOSARTAN POTASSIUM 50 MG TABLET PO SCH (09:00)
[2023-06-24] MEDS ORDERED: HOME MED 1 EA UNK (Lovastatin [Lovastatin] 40 MG Tablet) PO SCH (09:00)
[2023-06-24] MEDS ORDERED: METFORMIN HCL PO SCH (09:00)
[2023-06-24 09:15] VITALS: BP 133/84; TEMP 97.4
[2023-06-24] MEDS: PANTOPRAZOLE 40MG TABLET PO SCH (09:22)
[2023-06-24] MEDS: LOSARTAN POTASSIUM 50 MG TABLET PO SCH (09:22)
[2023-06-24] MEDS: INSULIN GLARGINE 100 UNIT/ML SQ SCH (09:52)
[2023-06-24] MEDS: Mupirocin NASAL 2 APPL/1 GM TUBE NAS SCH (09:52)
[2023-06-24] MEDS: INSULIN -REGULAR HUMAN 50 UNIT/0.5 ML ML SQ SCH (09:52)
[2023-06-24] MEDS: JUVEN PACKET PO SCH (09:53)
[2023-06-24] MEDS ORDERED: VANCOMYCIN 1.5 GM in NA CHLORIDE 0.9% 500 ML IVPB SCH (11:00)
== END 2023-06-24 10:40 | disposition home health service (06) | DRG 872 ==
LOC: ER 09:12 → ERHOLD 11:54 → 2ND 14:47
PROVIDERS: ADMIT Internal Medicine; ATTEND Internal Medicine
PROC: 02HV33Z Insertion of Infusion Device into Superior Vena Cava, Percutaneous Approach (ICD-10-PCS; principal; 2023-06-22)
DX: A41.9 Sepsis, unspecified organism (principal); M86.171 Other acute osteomyelitis, right ankle and foot; E11.69 Type 2 diabetes mellitus with other specified complication; E11.65 Type 2 diabetes mellitus with hyperglycemia; E11.621 Type 2 diabetes mellitus with foot ulcer; L97.519 Non-pressure chronic ulcer of other part of right foot with unspecified severity; I10 Essential (primary) hypertension; E78.2 Mixed hyperlipidemia; B96.1 Klebsiella pneumoniae [K. pneumoniae] as the cause of diseases classified elsewhere; Z79.4 Long term (current) use of insulin; Z89.432 Acquired absence of left foot
CPT/HCPCS: 36415; 36569; 71045; 80048; 80053; 80202; 82947; 83605; 85025; 85610; 85730; 87040; 87070; 87077; 87186; 87205; 93005; 93925; 96365; 96366; 96367; 99285; J0692; J0696; J1170; J1650; J1815; J2185; J7030; J7040; J7050